=== PATIENT | male | born 1940 | race Caucasian/White ===

== ENCOUNTER 2016-08-16 21:00 | Emergency (ER) | payer MEDICARE, OTHER ==
[2016-08-16] MEDS ORDERED: IPRATROPIUM/ALBUTEROL SULFATE 3 ML AMPUL.NEB NEB ONE (21:27)
[2016-08-16] MEDS: NITROGLYCERIN 0.4 MG TAB.SUBL SL ONE (21:30)
[2016-08-16] MEDS ORDERED: NITROGLYCERIN 0.4 MG TAB.SUBL SL ONE (21:38)
[2016-08-16] MEDS: IPRATROPIUM/ALBUTEROL SULFATE 3 ML AMPUL.NEB NEB ONE (21:39)
--- NOTE | 2016-08-16 21:44 | ED Physician Documentation ---
Dyspnea - HISTORIAN Historian: patient - HPI Chief Complaint: Dyspnea Onset: days ago (yesterday) Duration: continues in ED, worse Severity: moderate Exacerbated By: exertion, laying flat Associated Symptoms: chest pain, chest discomfort, productive cough (brown, yellow). denies: chills, fever, sweating, bloody cough, heart racing, leg pain , calf pain Further Comments: yes (76 year old male patient brought in by with complaints of dyspnea. states dyspnea started yesterday and has become progressively worse. 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 Risk Factors: hypertension Surgeries/Procedures: cardiac bypass (10 years ago), other (stents bilateral groin) Other History: diabetes Type 2, other (hypothyroidism, constipation) Allergies/Adverse Reactions: Allergies Allergy/AdvReac Type Severity Reaction Status Date / Time No Known Allergies Allergy Verified 08/16/16 21:45 Home Medications: Ambulatory Orders Medication Instructions Recorded Levothyroxine Sodium [Synthroid] 100 mcg PO 0700 07/05/12 Zolpidem Tartrate [Ambien] 5 mg PO HS PRN tablet 07/08/12 Atorvastatin Calcium [Atorvastatin 8 mg PO HS 08/16/16 Calcium] Calcium Carbonate [Calcium] 600 mg PO D 08/16/16 Cholecalciferol [Vitamin D-3] 5,000 units PO D 08/16/16 Ferrous Sulfate [Iron] 65 mg PO D 08/16/16 Magnesium Oxide [Magnesium] 400 mg PO BID 08/16/16 Metoprolol Tartrate [Lopressor] 25 mg PO HS 08/16/16 Metoprolol Tartrate [Lopressor] 50 mg PO AM 08/16/16 Comb No.42/Folic Acid 1 tab PO D 08/16/16 [Vitamedmd Redichew Rx Tab Chew] Warfarin Sodium [Coumadin] 2.5 mg PO [id number] 08/16/16 Warfarin Sodium [Coumadin] 5 mg PO [id number] 08/16/16 - SOCIAL HX Smoking History: non-smoker - FAMILY HX Family History: denies: none - VITAL SIGNS Vital Signs: Vital Signs Temp Pulse Resp BP Pulse Ox 97.9 F 92 H 30 H 149/95 88 L 08/16/16 21:01 08/16/16 21:01 08/16/16 21:01 08/16/16 21:01 08/16/16 21:01 - REVIEWED ASSESSMENTS Nursing Assessment Reviewed: Yes Vitals Reviewed: Yes Progress - Progress Progress: Patient c/o chest pressure, rates 2/10 - nitro SL given. 2244 Reviewed lab and xray results with patient and . Recommended transfer for cardiology consult. reports not previous history of CHF. Patient prefers [facility]. Patient denies any pain at present. 225 Call to [facility], spoke with Watson GALLAGHER, case discussed - awaiting acceptance. 2320 Technical difficulty in radiology, only able to see film in radiology department, no radiologist over read available. [address] Patel at [facility]. Family updated. Patient with 850cc urine output after lasix 40mg IV. - EKG/XRAY/CT EKG: rhythm (Afib, rate 84) XRAY: chest (CHF, pulmonary edema, cardiomegaly) ED Results Lab/Radiology - Orders Orders: ED Orders Category Date Time Status Continuous EKG monitoring Q30M Care 08/16/16 21:07 Ordered Continuous Pulse Oximetry Q30M Care 08/16/16 21:[address] IV Lock 1T Care 08/16/16 21:08 Ordered CHEST 1 VIEW [RAD] Stat Exams 08/16/16 21:07 Ordered BNP [NT-proBNP] Stat Lab 08/16/16 Ordered CBC/PLATELET/DIFF Stat Lab 08/16/16 21:07 Ordered CMP Stat Lab 08/16/16 21:07 Ordered CREATINE KINASE Stat Lab 08/16/16 21:07 Ordered PT [PT-INR] Stat Lab 08/16/16 Ordered TROPONIN I (cTnI) Stat Lab 08/16/16 21:08 Ordered UA W/MICRO IF INDICATED Stat Lab 08/16/16 21:08 Ordered Ipratropium/Albuterol Sulfate [Duoneb] Med 08/16/16 21:27 Discontinued 3 ml NEB .STK-MED ONE Ipratropium/Albuterol Sulfate [Duoneb] Med 08/16/16 21:27 Once 3 ml NEB NOW ONE Oxygen Daily Oxygen 08/16/16 21:15 Ordered EKG WITH COMPARISON Stat Ther 08/16/16 21:07 Ordered Dyspnea Physical Exam - EXAM General Appearance: moderate distress EENT: eye inspection normal, CAMILA Respiratory: no pain on inspiration, speaks full sentences, respiratory distress (mild RR 28-32), accessory muscle use, decreased air movement, wheezes (2143 after duoneb), rales (bilateral bases) CVS: no murmur, no gallop, pulses full, pulses equal, irregularly irreg. rhythm (chronic AFib) Abdomen: non-tender, no organomegaly, no distention, no ascites, other ( protuberant abd) Skin: no rash, pallor, warm, nml palp., dry Extremities: non-tender, normal range of motion, no evidence of injury, edema (1 + edema to ankles and feet) Neuro/Psych: oriented x3, CN's nml as tested, motor nml, sensation nml, mood/ affect nml Discharge Clincal Impression: CHF (congestive heart failure), NYHA class III Qualifiers: Congestive heart failure type: combined Congestive heart failure chronicity: acute Qualified Code(s): I50.41 - Acute combined systolic (congestive) and diastolic (congestive) heart failure Home Medications: Ambulatory Orders Levothyroxine Sodium [Synthroid] 100 mcg PO 0700 07/05/12 Zolpidem Tartrate [Ambien] 5 mg PO HS PRN tablet 07/08/12 Atorvastatin Calcium [Atorvastatin Calcium] 8 mg PO HS 08/16/16 Calcium Carbonate [Calcium] 600 mg PO D 08/16/16 Cholecalciferol [Vitamin D-3] 5,000 units PO D 08/16/16 Ferrous Sulfate [Iron] 65 mg PO D 08/16/16 Magnesium Oxide [Magnesium] 400 mg PO BID 08/16/16 Metoprolol Tartrate [Lopressor] 25 mg PO HS 08/16/16 Metoprolol Tartrate [Lopressor] 50 mg PO AM 08/16/16 Comb No.42/Folic Acid [Vitamedmd Redichew Rx Tab Chew] 1 tab PO D 08/16 Warfarin Sodium [Coumadin] 2.5 mg PO [id number] 08/16/16 Warfarin Sodium [Coumadin] 5 mg PO [id number] 08/16/16 Condition: Fair Disposition: 02 XFER [facility] HOSP Decision to Admit: NO Decision Time: 23:31
[2016-08-16 21:58] LABS: BASOPHILS % 0.8 (0.0-1.5); MEAN CORPUSCULAR HEMOGLOBIN 31.6 pg (28.0-34.0); MEAN CORPUSCULAR VOLUME 91.8 fl (80.0-100.0); MONOCYTES % 6.7 % (0.0-11.0)
[2016-08-16 22:12] LABS: eGFR (African) > 60; eGFR (Non-African) > 60
[2016-08-16] MEDS: FUROSEMIDE 40 MG/4 ML VIAL IVP ONE (22:20)
[2016-08-16] MEDS: POTASSIUM CHLORIDE 20 MEQ TABLET.ER PO ONE (23:15)
--- NOTE | 2016-08-17 01:34 | Diagnostic Imaging Report ---
SHAMEKA GONZALEZ (BUSINESS INFORMATION CONSULTANT) - ER [facility] [address] [facility].[address] [address] Report Submission Date: Aug 17, 2016 12:12:51 AM CDT Patient Study Name: SHANNAN BRYANT Date: Aug 16, 2016 10:28:24 PM CDT Modality Type: CR Gender: M Description: CHEST : 40 Institution: [facility] Physician: SHAMEKA GONZALEZ (BUSINESS INFORMATION CONSULTANT) - ER Portable chest History: Dyspnea Findings: Moderate bilateral mid to lower lung infiltrate or edema are observed. Pulmonary vascular congestion and cardiomegaly are present. Low lung volumes are noted. Small pleural effusions cannot be excluded. Impression: Probable congestive heart failure. Electronically signed on Aug 17, 2016 12:12:51 AM CDT by: Mike STRANGE
[2016-08-17 01:43] VITALS: BP 152/90
[2016-08-17 05:38] LABS: APPEARANCE,URINE CLEAR (CLEAR); COLOR,URINE YELLOW (YELLOW); OCCULT BLOOD,URINE TRACE-LYSED (NEGATIVE); PH URINE 5.5 (5.0 - 8.0); UROBILINOGEN URINE 0.2 Eu (0.2-1.0)
== END 2016-08-16 23:24 | disposition short-term general hospital (02) ==
LOC: ED 21:00
DX: I50.41 Acute combined systolic (congestive) and diastolic (congestive) heart failure (principal)
CPT/HCPCS: 71010; 80053; 81002; 82550; 83880; 84484; 85025; 85610; A9270; J1940; 99284; S1016

== ENCOUNTER 2016-09-06 18:47 | Emergency (ER) | payer MEDICARE, OTHER ==
--- NOTE | 2016-09-06 19:31 | ED Physician Documentation ---
General Adult - HISTORIAN Historian: patient - HPI Chief Complaint: Dyspnea Onset: days ago (CHF for about 3 weeks) Timing: still present Further Comments: yes (Patient was diagnoses with CHF about 3 weeks ago. Post exerction SA)2 dropped to 83%. Is currently having some increase problems with SHULTZ. Does good with resting. Is having some sleep apnea issues also. No cough chest pain or pressure noted.) - ROS CONST: no problems. denies: fever, chills - PAST HX Past History: A-Fib, CHF Surgeries/Procedures: cholecystectomy, other (, stinting of the femoral arterties, bilateral hernia, .) Allergies/Adverse Reactions: Allergies Allergy/AdvReac Type Severity Reaction Status Date / Time No Known Allergies Allergy Verified 09/06/16 19:16 Home Medications: Ambulatory Orders Medication Instructions Recorded Levothyroxine Sodium [Synthroid] 100 mcg PO 0700 07/05/12 Atorvastatin Calcium [Atorvastatin 8 mg PO HS 08/16/16 Calcium] Calcium Carbonate [Calcium] 600 mg PO D 08/16/16 Magnesium Oxide [Magnesium] 400 mg PO BID 08/16/16 Metoprolol Tartrate [Lopressor] 25 mg PO HS 08/16/16 Metoprolol Tartrate [Lopressor] 50 mg PO AM 08/16/16 Comb No.42/Folic Acid 1 tab PO D 08/16/16 [Vitamedmd Redichew Rx Tab Chew] - SOCIAL HX Smoking History: quit greater than 1 year (quit 24 years ago, > 2ppd) Alcohol Use: none Drug Use: none - FAMILY HX Family History: No - VITAL SIGNS Vital Signs: Vital Signs Temp Pulse Resp BP Pulse Ox 152/90 08/16/16 23:55 - REVIEWED ASSESSMENTS Nursing Assessment Reviewed: Yes Vitals Reviewed: Yes Progress - Progress Progress: SAO2 at resting on RA 94% SAO2 walking on RA 87% SAo2 walking with oxygen at 2 liters 96% General Adult Physical Exam - PHYSICAL EXAM GENERAL APPEARANCE: mild distress EENT: eye inspection normal NECK: normal inspection, thyroid normal, supple RESPIRATORY: no resp distress, chest non-tender, breath sounds normal. No: wheezes, rales, rhonchi CVS: reg rate & rhythm, heart sounds normal, equal pulses, no murmur ABDOMEN: soft, no organomegaly, normal bowel sounds SKIN: warm/dry, normal color EXTREMITIES: non-tender, edema (trace) NEURO: oriented X3, mood/affect nml Discharge Clincal Impression: Dyspnea Qualifiers: Dyspnea type: dyspnea on exertion Qualified Code(s): R06.09 - Other forms of dyspnea Referrals: Kelsie Dubose FNP [Primary Care Provider] - 2 Days Additional Instructions: Stay on present medication and treatment. I will contact Kelsie Dubose about getting oxygen therapy. Home Medications: Ambulatory Orders Levothyroxine Sodium [Synthroid] 100 mcg PO 0700 07/05/12 Atorvastatin Calcium [Atorvastatin Calcium] 8 mg PO HS 08/16/16 Calcium Carbonate [Calcium] 600 mg PO D 08/16/16 Magnesium Oxide [Magnesium] 400 mg PO BID 08/16/16 Metoprolol Tartrate [Lopressor] 25 mg PO HS 08/16/16 Metoprolol Tartrate [Lopressor] 50 mg PO AM 08/16/16 Comb No.42/Folic Acid [Vitamedmd Redichew Rx Tab Chew] 1 tab PO D 08/16 Condition: Stable Decision to Admit: NO Date of Decison to Admit: 09/06/16 Decision Time: 21:11
[2016-09-06 19:46] LABS: BASOPHILS % 1.2 (0.0-1.5); EOSINOPHILS % 3.6 % (0.0-6.8); MEAN CORPUSCULAR HEMOGLOBIN 33.9 pg (28.0-34.0); MEAN CORPUSCULAR VOLUME 88.9 fl (80.0-100.0); MONOCYTES % 7.6 % (0.0-11.0); NEUTROPHILS # 5.1 # k/uL (1.4-7.7)
[2016-09-06] MEDS ORDERED: 0.9 % SODIUM CHLORIDE 1,000 ML IV ONE (20:14)
--- NOTE | 2016-09-06 20:54 | Diagnostic Imaging Report ---
HOMER JO [facility] [id number] [facility] [address] [address] Report Submission Date: Sep 06, 2016 8:14:08 PM CDT Patient Study Name: SHANNAN BRYANT Date: Sep 06, 2016 7:54:06 PM CDT Modality Type: CR Gender: M Description: CHEST : 40 Institution: [facility] Physician: HOMER JO Chest, PA and lateral History: Shortness of breath Findings: No infiltrate, effusion or pneumothorax is present. The heart is enlarged. Pulmonary vascularity is normal. There is calcification in the thoracic aorta. T12 vertebral body compression fracture is present. Approximately 25% loss of vertebral body height is noted at this level. Vertebroplasty or kyphoplasty changes may be present. Impression: Cardiomegaly and aortic atherosclerosis. Electronically signed on Sep 06, 2016 8:14:08 PM CDT by: Raúl STRANGE
[2016-09-06 21:42] VITALS: BP 140/74
== END 2016-09-06 21:15 ==
LOC: ED 18:47
DX: R06.09 Other forms of dyspnea (principal)
CPT/HCPCS: 71020; 80053; 83880; 85025; 93005; J7030; 96360; 99283; S1016

== ENCOUNTER 2016-09-08 07:57 | Outpatient (CLI) | payer MEDICARE, OTHER | END 2016-09-08 08:00 | LOC: LAB 07:57 | PROVIDERS: ATTEND Pain Medicine Interventional Pain Medicine | DX: M54.5 Low back pain (principal); Z79.01 Long term (current) use of anticoagulants | CPT/HCPCS: 36415; 85610; 85730 ==

== ENCOUNTER 2016-10-16 07:47 | Outpatient (CLI) | payer MEDICARE, OTHER ==
[2016-10-16 08:20] LABS: BASOPHILS % 0.8 (0.0-1.5); EOSINOPHILS % 4.6 % (0.0-6.8); MEAN CORPUSCULAR HEMOGLOBIN 31.1 pg (28.0-34.0); MEAN CORPUSCULAR VOLUME 86.6 fl (80.0-100.0); NEUTROPHILS # 4.6 # k/uL (1.4-7.7)
== END 2016-10-16 07:50 ==
LOC: LAB 07:47
PROVIDERS: ATTEND Orthopaedic Surgery
DX: M25.552 Pain in left hip (principal); Z96.642 Presence of left artificial hip joint
CPT/HCPCS: 36415; 85025; 85651; 86140

== ENCOUNTER 2016-11-05 09:16 | Outpatient (CLI) | payer MEDICARE, OTHER | END 2016-11-05 09:17 | LOC: LAB 09:16 | PROVIDERS: ATTEND Orthopaedic Surgery Adult Reconstructive Orthopaedic Surgery | DX: M16.12 Unilateral primary osteoarthritis, left hip (principal) | CPT/HCPCS: 36415; 85610; 85730 ==

== ENCOUNTER 2017-02-10 16:10 | Inpatient (IN) | payer MEDICARE, OTHER ==
[2017-02-10] MEDS ORDERED: ENOXAPARIN SODIUM 30 MG/0.3 ML DISP.SYRIN SQ SCH (18:00)
[2017-02-10 18:08] VITALS: BMI 80.6
[2017-02-10] MEDS ORDERED: ENOXAPARIN SODIUM 30 MG/0.3 ML DISP.SYRIN SQ ONE (18:11)
[2017-02-10] MEDS: ATORVASTATIN CALCIUM 80 MG TABLET PO SCH ×2 (18:15→18:19)
[2017-02-10] MEDS: PREGABALIN 50 MG CAPSULE PO SCH ×2 (18:47→20:06)
[2017-02-10] MEDS: WARFARIN SODIUM 2.5 MG TABLET PO SCH (18:59)
[2017-02-10] MEDS: WARFARIN SODIUM 5 MG TABLET PO SCH (19:00)
--- NOTE | 2017-02-10 19:07 | History and Physical Report ---
History of Present Illnes - History of Present Illness Reason for Visit: rehab therapy post total left hip revision History of Present Illness: Patient is a 76-year-old white male who several years ago have a total hip replacement done on the left side. Patient stated he is had problems with it ever since it with done. Patient recently was admitted to [facility] where he had a revision of the hip. Patient stated he has been doing well. Pain has been managed with tramadol. Patient has been having bowel movements. Patient has been ambulating with some difficulties. Patient did not have any intraoperative or postoperative complications that he is aware. Patient was subsequently transferred to this institution for further rehab services. 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 negative: Ear Pain, Ear Discharge, Nose Pain, Nose Discharge, Nose Congestion, Mouth Pain, Mouth Swelling, Throat Pain, Throat Swelling Respiratory: negative: Cough, Shortness of Breath, Hemoptysis, SOB with Excertion, Pleuritic Pain, Sputum, Wheezing Cardiovascular: Other (A fib). negative: Chest Pain, Palpitations, Orthopnea, Paroxysmal Noc. Dyspnea, Light Headedness Gastrointestinal: negative: Nausea, Vomiting, Abdominal Pain, Diarrhea, Constipation (BM every day the last 3 days) Genitourinary: Incontinence. negative: Dysuria, Frequency, Hematuria, Retention Musculoskeletal: Leg Pain (left). negative: Neck Pain, Shoulder Pain, Arm Pain , Back Pain Skin: negative: Rash, Lesions Neurological: negative: Weakness, Numbness, Incoordination, Change in Speech, Confusion, Seizures - Medications/Allergies Allergies/Adverse Reactions: Allergies Allergy/AdvReac Type Severity Reaction Status Date / Time No Known Allergies Allergy Verified 09/06/16 19:16 Current Inpatient Medications: Current Inpatient Medications Atorvastatin Calcium (Lipitor) 40 mg PO HS [facility] Last Admin: 02/10/17 18:19 Dose: Not Given Calcium/Vitamin D (Caltrate With Vit D-3) 1 each PO DAILY [facility] Diltiazem HCl (Cardizem Cd) 180 mg PO DAILY [facility] Levothyroxine Sodium (Synthroid) 100 mcg PO 0700 [facility] Magnesium Oxide (Mag-Oxide) 400 mg PO BID [facility] Metoprolol Tartrate (Lopressor) 25 mg PO HS [facility] Metoprolol Tartrate (Lopressor) 50 mg PO AM [facility] Miscellaneous (Chem Sticks) 1 each MC CHEMQ [facility] Multivitamins (Tab-A-Aswyer) 1 each PO DAILY [facility] Pregabalin (Lyrica) 50 mg PO BID [facility] Last Admin: 02/10/17 18:47 Dose: Not Given Tramadol HCl (Ultram) 50 mg PO Q6H PRN PRN Reason: PAIN Warfarin Sodium (Coumadin) 2.5 mg PO [id number] [facility] Last Admin: 02/10/17 18:59 Dose: Not Given Warfarin Sodium (Coumadin) 5 mg PO [id number] [facility] Last Admin: 02/10/17 19:00 Dose: 5 mg Exam - Exam Vital Signs: Vital Signs (72 hours) 02/10/17 02/10/17 16:58 18:00 Temperature 98.1 F 97.4 F L Pulse Rate [ 102 H Left] Respiratory 22 20 Rate Blood Pressure 131/71 [Left Arm] Blood Pressure 136/70 [Right Arm] O2 Sat by Pulse 95 96 Oximetry General: Alert, Oriented to Person, Oriented to Place, Oriented to Time, Cooperative HEENT: Atraumatic, PERRLA, Mouth Mucous membr. moist/Ronda, Nose Mucous membr. moist/Ronda, Decreased Hearing Acuity Neck: Normal Range of Motion. No: Stridor, Rigidity, Lymphadenopathy Carotids: WNL Thyroid: WNL Lungs: Clear to auscultation, Normal air movement, Speaks full Sentences. No: Respiratory Distress, Wheezes, Rales, Rhonchi Cardiovascular: Normal S1, Normal S2, No murmurs, Irregularly Irregular, Atrial Fib Abdomen: Normal bowel sounds (obese), Soft, No tenderness, No hepatospenomegaly , No masses Integumentary: Normal, Ronda, Warm, Dry, Other (well healing surgical scar tot he left lateral hip) Extremities: No clubbing, No cyanosis, Normal pulses, Other (Mild LLE edema). No: No edema Neurological: Normal speech, Strength Equal Bilat, Normal tone, Sensation intact , Cranial nerves 3-12 NL, Reflexes 2+. No: Normal gait Psych/Mental Status: Mental status NL, Mood NL, Appropriate Affect, Intact Judgment Assessment/Plan - Assessment/Plan (1) Gait disturbance Status: Acute Current Visit: Yes Assessment: Will start PT and OT therapy, goal is for patient to return to home. No steps in the home. (2) Atrial fibrillation Status: Chronic Current Visit: Yes Qualifiers: Atrial fibrillation type: chronic Qualified Code(s): I48.2 - Chronic atrial fibrillation Assessment: continue with rate control meds and anticoagulation therapy (3) CAD (coronary artery disease) Status: Chronic Current Visit: Yes Qualifiers: Coronary Disease-Associated Artery/Lesion type: hoh artery [place] vs. transplanted heart: hoh heart Associated angina: without angina Qualified Code(s): I25.10 - Atherosclerotic heart disease of hoh coronary artery without angina pectoris Comment: stable, will continuw with home meds (4) PVD (peripheral vascular disease) Status: Chronic Current Visit: Yes Assessment: stable, on anticoagulation therapy (5) Hypothyroidism Status: Chronic Current Visit: Yes Qualifiers: Hypothyroidism type: unspecified Qualified Code(s): E03.9 - Hypothyroidism , unspecified Assessment: continue with levothyroxine (6) Osteoarthritis of hip Status: Acute Current Visit: Yes Qualifiers: Osteoarthritis type: primary Assessment: s/p revision, monitor wound (7) Diabetes type 2, controlled Status: Chronic Current Visit: Yes Qualifiers: Diabetes mellitus complication status: without complication Diabetes mellitus jail insulin use: without jail use Qualified Code(s): E11.9 - Type 2 diabetes mellitus without complications Assessment: does not appear to be on any medication at this time, will continue with diet control, Last A1c 5.7 (8) Essential hypertension Status: Chronic Current Visit: Yes Assessment: stable on home medications (9) History of prostate cancer Status: Chronic Current Visit: No (10) Adequate anticoagulation on anticoagulant therapy Status: Chronic Current Visit: Yes Assessment: continue with coumadin, will recheck INR (11) CHF (congestive heart failure), NYHA class III Status: Chronic Current Visit: No Qualifiers: Congestive heart failure type: diastolic Congestive heart failure chronicity: chronic Qualified Code(s): I50.32 - Chronic diastolic (congestive ) heart failure Assessment: stable continue with home medications VTE Assessment - RISK FACTOR SCORE VTE RISK FACTOR SCORES: AGE OVER 60 YEARS, ANTICIPATED BED CONFINEMENT OR IMMOBILIZATION > 24 HOURS, ELECTIVE KNEE OR HIP ARTHROPLASTY - RISK VTE HIGH RISK: SCORE OF 3-4 (RISK PROXIMAL DVT 4-8%) PROPHYLAXIS NEEDED (on coumadin therapy)
[2017-02-10] MEDS: METOPROLOL TARTRATE 25 MG TABLET PO SCH (20:06)
[2017-02-10] MEDS: MAGNESIUM OXIDE 400 MG TABLET PO SCH (22:03)
[2017-02-11] MEDS: traMADol HCL 50 MG TABLET PO PRN ×2 (02:44→08:48)
[2017-02-11] MEDS: LEVOTHYROXINE SODIUM 100 MCG TABLET PO SCH (05:58)
[2017-02-11] MEDS ORDERED: CALCIUM CARB 500/VIT D 200 1 EACH TABLET ONE (08:41)
[2017-02-11] MEDS: DILTIAZEM HCL 180 MG CAP.ER.24H PO SCH (08:47)
[2017-02-11] MEDS: PREGABALIN 50 MG CAPSULE PO SCH ×2 (08:47→19:32)
[2017-02-11] MEDS: METOPROLOL TARTRATE 50 MG TABLET PO SCH (08:47)
[2017-02-11] MEDS: MAGNESIUM OXIDE 400 MG TABLET PO SCH ×2 (08:48→19:32)
[2017-02-11] MEDS: MULTIVITAMIN 1 EACH TABLET PO SCH (08:48)
[2017-02-11] MEDS: CALCIUM CARB 600MG/VIT D-3 400 1 EACH TABLET PO SCH (08:49)
[2017-02-11] MEDS ORDERED: HYDROcodone /APAP 5/325 1 EACH TABLET ONE (14:14)
[2017-02-11] MEDS: HYDROcodone /APAP 5/325 1 EACH TABLET PO PRN ×2 (14:15→20:56)
[2017-02-11] MEDS ORDERED: HYDROcodone /APAP 5/325 1 EACH TABLET PO PRN (15:13)
[2017-02-11] MEDS: WARFARIN SODIUM 2.5 MG TABLET PO SCH (17:39)
[2017-02-11] MEDS: METOPROLOL TARTRATE 25 MG TABLET PO SCH (19:32)
[2017-02-11] MEDS: ATORVASTATIN CALCIUM 80 MG TABLET PO SCH (19:32)
[2017-02-12] MEDS ORDERED: CALCIUM CARB 500/VIT D 200 1 EACH TABLET ONE (05:19)
[2017-02-12] MEDS: LEVOTHYROXINE SODIUM 100 MCG TABLET PO SCH (05:56)
[2017-02-12] MEDS: CALCIUM CARB 600MG/VIT D-3 400 1 EACH TABLET PO SCH (08:53)
[2017-02-12] MEDS: DILTIAZEM HCL 180 MG CAP.ER.24H PO SCH (08:53)
[2017-02-12] MEDS: DOCUSATE SODIUM 100 MG CAPSULE PO SCH (08:54)
[2017-02-12] MEDS: MAGNESIUM OXIDE 400 MG TABLET PO SCH ×2 (08:54→20:55)
[2017-02-12] MEDS: METOPROLOL TARTRATE 50 MG TABLET PO SCH (08:54)
[2017-02-12] MEDS: MULTIVITAMIN 1 EACH TABLET PO SCH (08:54)
[2017-02-12] MEDS: PREGABALIN 50 MG CAPSULE PO SCH ×2 (08:59→20:53)
[2017-02-12] MEDS: HYDROcodone /APAP 5/325 1 EACH TABLET PO PRN ×4 (08:59→23:33)
[2017-02-12] MEDS: POLYETHYLENE GLYCOL 3350 17 GM POWD.PACK PO SCH ×2 (09:30→11:39)
[2017-02-12] MEDS: WARFARIN SODIUM 5 MG TABLET PO SCH (18:02)
[2017-02-12] MEDS: ATORVASTATIN CALCIUM 80 MG TABLET PO SCH (20:50)
[2017-02-12] MEDS: METOPROLOL TARTRATE 25 MG TABLET PO SCH (20:53)
[2017-02-13] MEDS: LEVOTHYROXINE SODIUM 100 MCG TABLET PO SCH (06:14)
[2017-02-13] MEDS: DILTIAZEM HCL 180 MG CAP.ER.24H PO SCH (08:54)
[2017-02-13] MEDS: HYDROcodone /APAP 5/325 1 EACH TABLET PO PRN ×3 (08:54→22:32)
[2017-02-13] MEDS: MULTIVITAMIN 1 EACH TABLET PO SCH (08:55)
[2017-02-13] MEDS: METOPROLOL TARTRATE 50 MG TABLET PO SCH (08:55)
[2017-02-13] MEDS: DOCUSATE SODIUM 100 MG CAPSULE PO SCH (08:55)
[2017-02-13] MEDS: CALCIUM CARB 600MG/VIT D-3 400 1 EACH TABLET PO SCH (09:04)
[2017-02-13] MEDS: MAGNESIUM OXIDE 400 MG TABLET PO SCH ×2 (09:04→21:37)
[2017-02-13] MEDS: PREGABALIN 50 MG CAPSULE PO SCH ×2 (09:04→21:37)
[2017-02-13] MEDS: FUROSEMIDE 40 MG TABLET PO SCH ×2 (12:22→16:34)
[2017-02-13] MEDS: POLYETHYLENE GLYCOL 3350 17 GM POWD.PACK PO SCH (12:22)
[2017-02-13] MEDS: WARFARIN SODIUM 2.5 MG TABLET PO SCH (18:33)
[2017-02-13] MEDS: traMADol HCL 50 MG TABLET PO PRN (18:33)
[2017-02-13] MEDS: METOPROLOL TARTRATE 25 MG TABLET PO SCH (21:37)
[2017-02-13] MEDS: ATORVASTATIN CALCIUM 80 MG TABLET PO SCH (21:37)
[2017-02-14] MEDS: LEVOTHYROXINE SODIUM 100 MCG TABLET PO SCH (06:08)
[2017-02-14] MEDS: FUROSEMIDE 40 MG TABLET PO SCH ×2 (06:09→14:15)
[2017-02-14] MEDS: HYDROcodone /APAP 5/325 1 EACH TABLET PO PRN ×4 (08:10→23:44)
[2017-02-14] MEDS: MAGNESIUM OXIDE 400 MG TABLET PO SCH ×2 (08:11→20:49)
[2017-02-14] MEDS: MULTIVITAMIN 1 EACH TABLET PO SCH (08:12)
[2017-02-14] MEDS: DOCUSATE SODIUM 100 MG CAPSULE PO SCH (08:12)
[2017-02-14] MEDS: METOPROLOL TARTRATE 50 MG TABLET PO SCH (08:12)
[2017-02-14] MEDS: DILTIAZEM HCL 180 MG CAP.ER.24H PO SCH (08:12)
[2017-02-14] MEDS: POLYETHYLENE GLYCOL 3350 17 GM POWD.PACK PO SCH (08:13)
[2017-02-14] MEDS: PREGABALIN 50 MG CAPSULE PO SCH ×2 (08:16→20:51)
[2017-02-14] MEDS: CALCIUM CARB 500/VIT D 200 1 EACH TABLET PO SCH (08:16)
--- NOTE | 2017-02-14 15:30 | Inpatient Progress Note ---
Subjective - Required Recertification Statement I anticipate X number of days because-include discharge plan: 2 weeks - Review of Systems Events since last encounter: Patient states he seemed to be doing better at this time. Patient states that her pain is well-controlled with her current pain regimen. Patient has been using the hydrocodone sparingly. Patient does feel like he is gaining straight for his ambulation. Patient has been having some constipation problems. Patient denies any nausea vomiting. Objective - Exam Vitals and I&O: Vital Signs Temp 98 F 02/14/17 09:00 Pulse 88 02/14/17 09:00 Resp 20 02/14/17 09:00 BP 130/85 02/14/17 09:00 Pulse Ox 98 02/14/17 09:00 Intake & Output 02/13/17 02/14/17 02/14/17 23:59 11:59 23:59 Intake Total 600 240 Balance 600 240 Weight 96.615 kg Intake: Oral 600 240 Other: Voiding Method Urinal Urinal # Voids 2 General: Alert, Oriented to Person, Oriented to Place, Oriented to Time, Cooperative, No acute distress Lungs: Clear to auscultation, Normal air movement, Speaks full Sentences. No: Wheezes, Rales, Rhonchi Cardiovascular: Normal S1, Normal S2, Irregularly Irregular Abdomen: Normal bowel sounds, Soft, No tenderness, No masses. No: Distended Skin: Normal, [place], Warm, Dry, Other (incision site stable) Psych/Mental Status: Mental status NL, Mood NL, Appropriate Affect - Results Results: Laboratory Results PT 21.7 Seconds (9.4-11.6) H 02/11/17 06:30 INR 2.05 (0.9-1.2) H 02/11/17 06:30 Assessment/Plan - Assessment/Plan (1) Gait disturbance Status: Acute Current Visit: Yes Assessment: improved (2) Atrial fibrillation Status: Chronic Current Visit: Yes Qualifiers: Atrial fibrillation type: chronic Qualified Code(s): I48.2 - Chronic atrial fibrillation Assessment: stable (3) CAD (coronary artery disease) Status: Chronic Current Visit: Yes Qualifiers: Coronary Disease-Associated Artery/Lesion type: wiyot artery [place] vs. 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: without embedded software engineer use Qualified Code(s): E11.9 - Type 2 diabetes mellitus without complications Assessment: blood sugars n the mid 100 range (7) Essential hypertension Status: Chronic Current Visit: Yes Assessment: stable (8) Adequate anticoagulation on anticoagulant therapy Status: Chronic Current Visit: Yes (9) CHF (congestive heart failure), NYHA class III Status: Chronic Current Visit: No Qualifiers: Congestive heart failure type: diastolic Congestive heart failure chronicity: chronic Qualified Code(s): I50.32 - Chronic diastolic (congestive ) heart failure Assessment: stable
[2017-02-14] MEDS: WARFARIN SODIUM 5 MG TABLET PO SCH (18:28)
[2017-02-14] MEDS: METOPROLOL TARTRATE 25 MG TABLET PO SCH (20:49)
[2017-02-14] MEDS: ATORVASTATIN CALCIUM 80 MG TABLET PO SCH (20:49)
[2017-02-15] MEDS: FUROSEMIDE 40 MG TABLET PO SCH ×2 (06:42→13:39)
[2017-02-15] MEDS: LEVOTHYROXINE SODIUM 100 MCG TABLET PO SCH (06:42)
[2017-02-15] MEDS: PREGABALIN 50 MG CAPSULE PO SCH ×2 (08:20→22:16)
[2017-02-15] MEDS: traMADol HCL 50 MG TABLET PO PRN ×2 (08:20→16:39)
[2017-02-15] MEDS: MAGNESIUM OXIDE 400 MG TABLET PO SCH ×2 (08:21→22:07)
[2017-02-15] MEDS: METOPROLOL TARTRATE 50 MG TABLET PO SCH (08:22)
[2017-02-15] MEDS: DILTIAZEM HCL 180 MG CAP.ER.24H PO SCH (08:22)
[2017-02-15] MEDS: MULTIVITAMIN 1 EACH TABLET PO SCH (08:22)
[2017-02-15] MEDS: POLYETHYLENE GLYCOL 3350 17 GM POWD.PACK PO SCH (16:41)
[2017-02-15] MEDS: CALCIUM CARB 500/VIT D 200 1 EACH TABLET PO SCH ×2 (16:41→22:04)
[2017-02-15] MEDS: WARFARIN SODIUM 5 MG TABLET PO SCH (18:09)
[2017-02-15] MEDS ORDERED: LOPERAMIDE HCL 2 MG CAPSULE PO PRN (19:41)
[2017-02-15] MEDS: DOCUSATE SODIUM 100 MG CAPSULE PO SCH (22:05)
[2017-02-15] MEDS: ATORVASTATIN CALCIUM 80 MG TABLET PO SCH (22:06)
[2017-02-15] MEDS: HYDROcodone /APAP 5/325 1 EACH TABLET PO PRN (22:15)
[2017-02-15] MEDS: METOPROLOL TARTRATE 25 MG TABLET PO SCH (22:15)
[2017-02-16] MEDS: traMADol HCL 50 MG TABLET PO PRN ×2 (04:45→12:52)
[2017-02-16] MEDS: FUROSEMIDE 40 MG TABLET PO SCH ×2 (06:39→11:31)
[2017-02-16] MEDS: LEVOTHYROXINE SODIUM 100 MCG TABLET PO SCH (06:39)
[2017-02-16] MEDS: DOCUSATE SODIUM 100 MG CAPSULE PO SCH (08:38)
[2017-02-16] MEDS: PREGABALIN 50 MG CAPSULE PO SCH ×2 (08:38→21:00)
[2017-02-16] MEDS: CALCIUM CARB 500/VIT D 200 1 EACH TABLET PO SCH (08:38)
[2017-02-16] MEDS: DILTIAZEM HCL 180 MG CAP.ER.24H PO SCH (08:38)
[2017-02-16] MEDS: MAGNESIUM OXIDE 400 MG TABLET PO SCH ×2 (08:38→21:00)
[2017-02-16] MEDS: METOPROLOL TARTRATE 50 MG TABLET PO SCH (08:38)
[2017-02-16] MEDS: MULTIVITAMIN 1 EACH TABLET PO SCH (08:38)
[2017-02-16] MEDS: POLYETHYLENE GLYCOL 3350 17 GM POWD.PACK PO SCH (11:20)
[2017-02-16] MEDS: WARFARIN SODIUM 2.5 MG TABLET PO SCH (17:22)
[2017-02-16] MEDS: HYDROcodone /APAP 5/325 1 EACH TABLET PO PRN (21:00)
[2017-02-16] MEDS: ATORVASTATIN CALCIUM 80 MG TABLET PO SCH (21:00)
[2017-02-16] MEDS: METOPROLOL TARTRATE 25 MG TABLET PO SCH (21:04)
[2017-02-17] MEDS: LEVOTHYROXINE SODIUM 100 MCG TABLET PO SCH (06:48)
[2017-02-17] MEDS: FUROSEMIDE 40 MG TABLET PO SCH ×2 (06:48→12:18)
[2017-02-17] MEDS: MULTIVITAMIN 1 EACH TABLET PO SCH (07:33)
[2017-02-17] MEDS: METOPROLOL TARTRATE 50 MG TABLET PO SCH (07:33)
[2017-02-17] MEDS: DOCUSATE SODIUM 100 MG CAPSULE PO SCH (07:33)
[2017-02-17] MEDS: DILTIAZEM HCL 180 MG CAP.ER.24H PO SCH (07:33)
[2017-02-17] MEDS: CALCIUM CARB 500/VIT D 200 1 EACH TABLET PO SCH (07:34)
[2017-02-17] MEDS: MAGNESIUM OXIDE 400 MG TABLET PO SCH ×2 (07:34→21:41)
[2017-02-17] MEDS: PREGABALIN 50 MG CAPSULE PO SCH ×2 (07:38→21:43)
[2017-02-17] MEDS: POLYETHYLENE GLYCOL 3350 17 GM POWD.PACK PO SCH (07:41)
[2017-02-17 07:47] LABS: BASOPHILS % 0.8 (0.0-1.5); EOSINOPHILS % 5.7 % (0.0-6.8); MEAN CORPUSCULAR HEMOGLOBIN 30.8 pg (28.0-34.0); MEAN CORPUSCULAR VOLUME 92.7 fl (80.0-100.0); MONOCYTES % 5.6 % (0.0-11.0); NEUTROPHILS # 5.5 # k/uL (1.4-7.7)
[2017-02-17 07:59] LABS: eGFR (African) > 60; eGFR (Non-African) > 60
[2017-02-17] MEDS: HYDROcodone /APAP 5/325 1 EACH TABLET PO PRN ×3 (09:12→21:40)
[2017-02-17] MEDS: WARFARIN SODIUM 5 MG TABLET PO SCH (17:25)
[2017-02-17] MEDS: METOPROLOL TARTRATE 25 MG TABLET PO SCH (21:40)
[2017-02-17] MEDS: ATORVASTATIN CALCIUM 80 MG TABLET PO SCH (21:41)
[2017-02-18] MEDS: HYDROcodone /APAP 5/325 1 EACH TABLET PO PRN ×3 (03:36→19:54)
[2017-02-18] MEDS: LEVOTHYROXINE SODIUM 100 MCG TABLET PO SCH (06:05)
[2017-02-18] MEDS: FUROSEMIDE 40 MG TABLET PO SCH ×2 (06:05→12:13)
[2017-02-18] MEDS: PREGABALIN 50 MG CAPSULE PO SCH ×2 (09:39→19:52)
[2017-02-18] MEDS: MAGNESIUM OXIDE 400 MG TABLET PO SCH ×2 (09:39→19:53)
[2017-02-18] MEDS: MULTIVITAMIN 1 EACH TABLET PO SCH (09:40)
[2017-02-18] MEDS: METOPROLOL TARTRATE 50 MG TABLET PO SCH (09:40)
[2017-02-18] MEDS: DILTIAZEM HCL 180 MG CAP.ER.24H PO SCH (09:40)
[2017-02-18] MEDS: DOCUSATE SODIUM 100 MG CAPSULE PO SCH ×2 (09:41→19:52)
[2017-02-18] MEDS: CALCIUM CARB 500/VIT D 200 1 EACH TABLET PO SCH (09:42)
[2017-02-18] MEDS: POLYETHYLENE GLYCOL 3350 17 GM POWD.PACK PO SCH (12:14)
[2017-02-18] MEDS: WARFARIN SODIUM 2.5 MG TABLET PO SCH (18:14)
[2017-02-18] MEDS: ATORVASTATIN CALCIUM 80 MG TABLET PO SCH (19:52)
[2017-02-18] MEDS: METOPROLOL TARTRATE 25 MG TABLET PO SCH (19:54)
[2017-02-19] MEDS: HYDROcodone /APAP 5/325 1 EACH TABLET PO PRN ×4 (03:06→23:23)
[2017-02-19] MEDS: FUROSEMIDE 40 MG TABLET PO SCH ×2 (06:19→11:54)
[2017-02-19] MEDS: LEVOTHYROXINE SODIUM 100 MCG TABLET PO SCH (06:19)
[2017-02-19] MEDS: DOCUSATE SODIUM 100 MG CAPSULE PO SCH (08:59)
[2017-02-19] MEDS: MAGNESIUM OXIDE 400 MG TABLET PO SCH ×2 (08:59→19:35)
[2017-02-19] MEDS: DILTIAZEM HCL 180 MG CAP.ER.24H PO SCH (09:19)
[2017-02-19] MEDS: CALCIUM CARB 500/VIT D 200 1 EACH TABLET PO SCH (09:20)
[2017-02-19] MEDS: MULTIVITAMIN 1 EACH TABLET PO SCH (09:20)
[2017-02-19] MEDS: PREGABALIN 50 MG CAPSULE PO SCH ×2 (09:23→19:37)
[2017-02-19] MEDS: METOPROLOL TARTRATE 50 MG TABLET PO SCH ×2 (09:23→19:34)
[2017-02-19] MEDS: POLYETHYLENE GLYCOL 3350 17 GM POWD.PACK PO SCH (11:54)
[2017-02-19] MEDS: WARFARIN SODIUM 5 MG TABLET PO SCH (17:26)
[2017-02-19] MEDS: ATORVASTATIN CALCIUM 80 MG TABLET PO SCH (19:33)
[2017-02-19] MEDS: METOPROLOL TARTRATE 25 MG TABLET PO SCH (19:34)
[2017-02-20] MEDS: LEVOTHYROXINE SODIUM 100 MCG TABLET PO SCH (05:52)
[2017-02-20] MEDS: FUROSEMIDE 40 MG TABLET PO SCH ×2 (05:52→15:09)
[2017-02-20] MEDS: PREGABALIN 50 MG CAPSULE PO SCH ×2 (08:40→20:45)
[2017-02-20] MEDS: CALCIUM CARB 500/VIT D 200 1 EACH TABLET PO SCH (08:40)
[2017-02-20] MEDS: DOCUSATE SODIUM 100 MG CAPSULE PO SCH (08:40)
[2017-02-20] MEDS: MAGNESIUM OXIDE 400 MG TABLET PO SCH ×2 (08:40→20:45)
[2017-02-20] MEDS: MULTIVITAMIN 1 EACH TABLET PO SCH (08:40)
[2017-02-20] MEDS: HYDROcodone /APAP 5/325 1 EACH TABLET PO PRN ×3 (08:40→22:15)
[2017-02-20] MEDS: DILTIAZEM HCL 180 MG CAP.ER.24H PO SCH (08:40)
[2017-02-20] MEDS: POLYETHYLENE GLYCOL 3350 17 GM POWD.PACK PO SCH (11:43)
--- NOTE | 2017-02-20 16:04 | Diagnostic Imaging Report ---
[place]MED SURG [facility] [address] [address] [facility] [address] [address] Report Submission Date: Feb 20, 2017 4:02:20 PM CRYSTAL GRINDER Patient Study Name: SHANNAN BRYANT Date: Feb 20, 2017 3:35:55 PM CRYSTAL GRINDER Modality Type: CR Gender: M Description: CHEST : 40 Institution: [facility] Physician: [place]/MED SURG Examination: PA and lateral chest. History: Evaluate lung joseph. Comparison exam: 06 September 2016 Findings: PA lateral chest demonstrate a normal cardiac and mediastinal silhouette. Vascular calcifications are depressed. Chronic interstitial changes. Right lower lung parenchymal infiltrate. No blunting of the costophrenic margins. Osseous structures are appropriate for age. Impression: Chronic parenchymal changes. Right lower lung pneumonic infiltrate. No effusion. Electronically signed on Feb 20, 2017 4:02:20 PM CRYSTAL GRINDER by: João STRANGE
[2017-02-20] MEDS ORDERED: AZITHROMYCIN 250 MG TABLET PO ONE (16:06)
[2017-02-20] MEDS: CEFDINIR 300 MG CAPSULE PO SCH ×2 (17:19→20:48)
[2017-02-20] MEDS: WARFARIN SODIUM 2.5 MG TABLET PO SCH (17:24)
[2017-02-20 17:50] LABS: BASOPHILS % 0.7 (0.0-1.5); EOSINOPHILS % 4.4 % (0.0-6.8); MEAN CORPUSCULAR HEMOGLOBIN 31.4 pg (28.0-34.0); MEAN CORPUSCULAR VOLUME 93.2 fl (80.0-100.0); MONOCYTES % 6.3 % (0.0-11.0); NEUTROPHILS # 6.3 # k/uL (1.4-7.7)
[2017-02-20] MEDS: IPRATROPIUM/ALBUTEROL SULFATE 3 ML AMPUL.NEB NEB SCH ×2 (18:20→21:15)
[2017-02-20] MEDS: METOPROLOL TARTRATE 25 MG TABLET PO SCH (20:45)
[2017-02-20] MEDS: ATORVASTATIN CALCIUM 80 MG TABLET PO SCH (20:46)
[2017-02-21] MEDS ORDERED: AZITHROMYCIN 250 MG TABLET PO ONE ×2 (05:20→10:22)
[2017-02-21] MEDS: FUROSEMIDE 40 MG TABLET PO SCH (06:19)
[2017-02-21] MEDS: LEVOTHYROXINE SODIUM 100 MCG TABLET PO SCH (06:19)
--- NOTE | 2017-02-21 08:36 | Discharge Summary ---
Discharge Summary - Discharge Sumary History of Present Illness: Patient is a 76-year-old white male who several years ago have a total hip replacement done on the left side. Patient stated he is had problems with it ever since it with done. Patient recently was admitted to [facility] where he had a revision of the hip. Patient stated he has been doing well. Pain has been managed with tramadol. Patient has been having bowel movements. Patient has been ambulating with some difficulties. Patient did not have any intraoperative or postoperative complications that he is aware. Patient was subsequently transferred to this institution for further rehab services. Condition at Discharge: Stable Home Medications: Ambulatory Orders Medication Instructions Recorded Levothyroxine Sodium [Synthroid] 100 mcg PO 0700 07/05/12 Calcium Carbonate [Calcium] 600 mg PO D 08/16/16 Magnesium Oxide [Magnesium] 400 mg PO BID 08/16/16 Comb No.42/Folic Acid 1 tab PO D 08/16/16 [Vitamedmd Redichew Rx Tab Chew] Azithromycin [Zithromax] 250 mg PO DAILY #3 tablet 02/20/17 Cefdinir 300 mg PO BID #20 capsule 02/20/17 Furosemide [Lasix] 40 mg PO 714 #60 tablet 02/20/17 Ipratropium/Albuterol Sulfate 3 ml NEB QID PRN #60 ampul.neb 02/20/17 [Duoneb] Metoprolol Tartrate [Lopressor] 50 mg PO BID #0 02/20/17 Pregabalin [Lyrica] 50 mg PO BID #60 capsule 02/20/17 Warfarin Sodium [Coumadin] 2.5 mg PO [id number] tablet 02/20/17 Warfarin Sodium [Coumadin] 5 mg PO [id number] tablet 02/20/17 traMADol HCL [Ultram] 50 mg PO Q6H PRN #30 tablet 02/20/17 Consultations this Visit: None Procedures this Visit: None Allergies/Adverse Reactions: Allergies Allergy/AdvReac Type Severity Reaction Status Date / Time No Known Allergies Allergy Verified 09/06/16 19:16 Discharge Summary: Patient with admitted to SNF for physical and occupational therapy following a revision of a total hip replacement. Patient did well with physical and occupational therapy. Patient did participate well. At the time of discharge patient was ambulating with the aid of a walker or cane. Patient was ambulating with minimal pain. Red felt that he could be discharged home and follow further home health physical and occupational therapy. 3D hospitalization patient did have some problems with constipation related to his pain medication. Patient was placed on narcotic pain medication for short period of time after his transfer to this institution to help control his pain better. At the time of discharge patient with discharged on tramadol and Tylenol. Patient atrial fibrillation remain stable without a tacky or bradycardia. Patient was on anticoagulation therapy and did have a sub therapeutic INR at the time of discharge. Adjustment were made in the patient commit and dosage. Patient also developed a productive cough up some green to yellow flame approximately two days prior to discharge. A chest x-ray did show a possible developing pneumonia. Patient was started on antibiotic therapy of Cedinir and azithromycin for this.Patient with givenDuoneb for nebulized treatments. Patient was 20 to be discharged so he could attend his brother's . Patient was subsequently discharged in data condition. - Final Diagnosis (1) Gait disturbance Problems: Improved. (2) Atrial fibrillation Problems: Stable. Patient did have a sub therapeutic INR. Coumadin with adjusted. Patient will have INR checked with home health. (3) CAD (coronary artery disease) Problems: Stable without any chest pain or chest pressure. Patient will be continued on home medications. (4) PVD (peripheral vascular disease) Problems: Stable on home medications. (5) Osteoarthritis of hip Problems: stable (6) Diabetes type 2, controlled Problems: stable on home medications (7) Essential hypertension Problems: Stable on home medications. (8) Adequate anticoagulation on anticoagulant therapy Problems: Coumadin was adjusted at the time of discharge. (9) CHF (congestive heart failure), NYHA class III Problems: Stable on home medications. (10) Pneumonia Problems: Patient was started on antibiotic therapy
[2017-02-21] MEDS: DILTIAZEM HCL 180 MG CAP.ER.24H PO SCH (08:39)
[2017-02-21] MEDS: METOPROLOL TARTRATE 50 MG TABLET PO SCH (08:40)
[2017-02-21] MEDS: MULTIVITAMIN 1 EACH TABLET PO SCH (08:40)
[2017-02-21] MEDS: DOCUSATE SODIUM 100 MG CAPSULE PO SCH (08:40)
[2017-02-21] MEDS: CALCIUM CARB 500/VIT D 200 1 EACH TABLET PO SCH (08:41)
[2017-02-21] MEDS: HYDROcodone /APAP 5/325 1 EACH TABLET PO PRN (08:41)
[2017-02-21] MEDS: MAGNESIUM OXIDE 400 MG TABLET PO SCH (08:43)
[2017-02-21] MEDS: PREGABALIN 50 MG CAPSULE PO SCH (08:47)
[2017-02-21] MEDS ORDERED: IPRATROPIUM/ALBUTEROL SULFATE 3 ML AMPUL.NEB NEB ONE (08:48)
[2017-02-21] MEDS: CEFDINIR 300 MG CAPSULE PO SCH (08:48)
[2017-02-21] MEDS: IPRATROPIUM/ALBUTEROL SULFATE 3 ML AMPUL.NEB NEB SCH (09:00)
[2017-02-21] MEDS ORDERED: AZITHROMYCIN 250 MG TABLET PO SCH (09:00)
[2017-02-21 10:19] VITALS: BP 136/76
--- NOTE | 2017-02-22 21:15 | Inpatient Progress Note ---
Subjective - Required Recertification Statement I anticipate X number of days because-include discharge plan: 7 - Review of Systems Events since last encounter: Patient seemed to be doing well progressing well with his physical and occupational therapy at this time. Patient stated it having some pain associated with his hip replacement but it does seem to be improving. Patient denies any complication problems. Patient atrial fibrillation has been stable. General: Appetite (good) HEENT: Denies: Head Aches Pulmonary: Denies: Dyspnea, Cough Cardiovascular: Denies: Chest Pain, Palpitations, Orthopnea Gastrointestinal: Denies: Nausea, Vomiting, Abdominal Pain, Constipation Objective - Exam Vitals and I&O: Vital Signs Temp 97.9 F 02/21/17 09:00 Pulse 94 H 02/21/17 09:00 Resp 20 02/21/17 09:00 BP 136/76 02/21/17 09:00 Pulse Ox 96 02/21/17 09:00 General: Alert, Oriented to Person, Oriented to Place, Oriented to Time, Cooperative Neck: Supple, No JVD Lungs: Clear to auscultation, Normal air movement, Speaks full Sentences, Respiratory Distress. No: Wheezes, Rales, Rhonchi Cardiovascular: Regular rate, Normal S1, Normal S2 Abdomen: Normal bowel sounds, Soft, No tenderness, No hepatospenomegaly Extremities: Other (wound healing well) Skin: Normal, [place], Warm, Dry Neurological: Normal gait, Normal speech Psych/Mental Status: Mental status NL, Mood NL, Appropriate Affect, Intact Judgment - Results Results: Laboratory Results WBC 8.10 K/ul (4.00-12.00) 02/20/17 17:35 RBC 3.98 M/ul (3.90-5.20) 02/20/17 17:35 Hgb 12.5 g/dL (12.0-18.0) 02/20/17 17:35 Hct 37.1 % (37.0-53.0) 02/20/17 17:35 MCV 93.2 fl (80.0-100.0) 02/20/17 17:35 MCH 31.4 pg (28.0-34.0) 02/20/17 17:35 MCHC 33.7 g/dL (30.0-36.0) 02/20/17 17:35 RDW 15.0 % (11.3-14.3) H 02/20/17 17:35 Plt Count 286 K/mm3 (130-400) 02/20/17 17:35 Neut % (Auto) 78.1 % (39.0-79.0) 02/20/17 17:35 Lymph % (Auto) 8.9 % (16.0-50.0) L 02/20/17 17:35 [place] % (Auto) 6.3 % (0.0-11.0) 02/20/17 17:35 Eos % (Auto) 4.4 % (0.0-6.8) 02/20/17 17:35 Baso % (Auto) 0.7 (0.0-1.5) 02/20/17 17:35 Neut # (Auto) 6.3 # k/uL (1.4-7.7) 02/20/17 17:35 Lymph # (Auto) 0.7 # k/uL (0.6-4.0) 02/20/17 17:35 [place] # (Auto) 0.5 # k/uL (0.0-0.9) 02/20/17 17:35 Eos # (Auto) 0.4 # k/uL (0.0-0.6) 02/20/17 17:35 Baso # (Auto) 0.1 # k/uL (0.0-0.5) 02/20/17 17:35 Reactive Lymphs % 1.5 % (0.0-5.0) 02/20/17 17:35 Reactive Lymphs # 0.1 # k/uL (0.0-0.8) 02/20/17 17:35 PT 16.6 Seconds (9.4-11.6) H 02/20/17 17:35 INR 1.57 (0.9-1.2) H 02/20/17 17:35 Sodium 134 mmol/L (136-145) L 02/17/17 07:00 Potassium 4.1 mmol/L (3.5-5.1) 02/17/17 07:00 Chloride 97 mmol/L (98-107) L 02/17/17 07:00 Carbon Dioxide 31 mmol/L (22-30) H 02/17/17 07:00 BUN 16 mg/dL (9-20) 02/17/17 07:00 Creatinine 1.00 mg/dL (0.66-1.25) 02/17/17 07:00 Estimated Creat Clear 86 02/17/17 07:00 Est GFR ( Amer) > 60 (60-) 02/17/17 07:00 Est GFR (Non-Af Amer) > 60 (60-) 02/17/17 07:00 Glucose 160 mg/dL (74-106) H 02/17/17 07:00 Calcium 8.7 mg/dL (8.4-10.2) 02/17/17 07:00 Total Bilirubin 0.8 mg/dL (0.2-1.3) 02/17/17 07:00 AST 17 U/L (15-46) 02/17/17 07:00 ALT 28 U/L (13-69) 02/17/17 07:00 Alkaline Phosphatase 64 U/L (38-126) 02/17/17 07:00 Total Protein 6.0 g/dL (6.3-8.2) L 02/17/17 07:00 Albumin 3.0 g/dL (3.5-5.0) L 02/17/17 07:00 Assessment/Plan - Assessment/Plan (1) Gait disturbance Status: Acute Assessment: improved (2) Atrial fibrillation Status: Chronic Qualifiers: Atrial fibrillation type: chronic Qualified Code(s): I48.2 - Chronic atrial fibrillation Assessment: stable (3) CAD (coronary artery disease) Status: Chronic Qualifiers: Coronary Disease-Associated Artery/Lesion type: [place] artery [place] vs. transplanted heart: [place] heart Associated angina: without angina Qualified Code(s): I25.10 - Atherosclerotic heart disease of [place] coronary artery without angina pectoris Comment: stable, will continuw with home meds Assessment: stable (4) PVD (peripheral vascular disease) Status: Chronic (5) Osteoarthritis of hip Status: Acute Qualifiers: Osteoarthritis type: primary (6) Diabetes type 2, controlled Status: Chronic Qualifiers: Diabetes mellitus complication status: without complication Diabetes mellitus usp insulin use: without usp use Qualified Code(s): E11.9 - Type 2 diabetes mellitus without complications (7) Essential hypertension Status: Chronic Assessment: stable on home meds (8) Adequate anticoagulation on anticoagulant therapy Status: Chronic (9) CHF (congestive heart failure), NYHA class III Status: Chronic Qualifiers: Congestive heart failure type: diastolic Congestive heart failure chronicity: chronic Qualified Code(s): I50.32 - Chronic diastolic (congestive ) heart failure Assessment: stable
== END 2017-02-21 10:31 | disposition home health service (06) | DRG 92 ==
LOC: SOUTH 16:10
PROVIDERS: ADMIT Family Medicine; ATTEND Family Medicine
DX: R26.89 Other abnormalities of gait and mobility (principal); I48.2 Chronic atrial fibrillation; I25.10 Atherosclerotic heart disease of native coronary artery without angina pectoris; E03.9 Hypothyroidism, unspecified; E11.9 Type 2 diabetes mellitus without complications; I10 Essential (primary) hypertension; I50.32 Chronic diastolic (congestive) heart failure; Z96.649 Presence of unspecified artificial hip joint; Z79.01 Long term (current) use of anticoagulants
CPT/HCPCS: 36415; 71020; 80053; 85025; 85610; 87070; J1650; A9270-GY

== ENCOUNTER 2017-02-24 10:39 | Inpatient (IN) | payer MEDICARE, OTHER ==
--- NOTE | 2017-02-24 10:50 | ED Physician Documentation ---
Dyspnea - HISTORIAN Historian: patient - HPI Chief Complaint: Dyspnea Additional Information: Patient was recently admitted to SNF following left hip revision. At the time of discharge he was felt to be developing a pneumonia and was started on antibiotic of azithromicin and cefdinir. Patient states that his breathing i worse. Hs been running a low grade fever and having some chills. Onset: days ago (4 days) Duration: continues in ED, worse Initiating Event: other (pneumonia) Severity: moderate Exacerbated By: exertion, coughing Associated Symptoms: chills, sweating, productive cough, heart racing. denies: fever, chest pain, chest discomfort, bloody cough - ROS CONST: weakness NEURO/PSYCH: denies: headache MS/SKIN/LYMPH: muscle aches. denies: neck pain - PAST HX Lung Disease: COPD Cardiac Disease: CAD, A-Fib PE Risk Factors: none Surgeries/Procedures: other (hip arthroplasty, catarct extraction, CAGB, inguinal hernia repair, TURP) Other History: other (DM type 2, prostate Ca, anticoagulation therapy) Immunizations: influenza, pneumovax Allergies/Adverse Reactions: Allergies Allergy/AdvReac Type Severity Reaction Status Date / Time No Known Allergies Allergy Verified 02/24/17 10:58 Home Medications: Ambulatory Orders Medication Instructions Recorded Levothyroxine Sodium [Synthroid] 100 mcg PO 0700 07/05/12 Calcium Carbonate [Calcium] 600 mg PO D 08/16/16 Magnesium Oxide [Magnesium] 400 mg PO BID 08/16/16 Comb No.42/Folic Acid 1 tab PO D 08/16/16 [Vitamedmd Redichew Rx Tab Chew] Azithromycin [Zithromax] 250 mg PO DAILY #3 tablet 02/20/17 Cefdinir 300 mg PO BID #20 capsule 02/20/17 Furosemide [Lasix] 40 mg PO 714 #60 tablet 02/20/17 Ipratropium/Albuterol Sulfate 3 ml NEB QID PRN #60 ampul.neb 02/20/17 [Duoneb] Metoprolol Tartrate [Lopressor] 50 mg PO BID #0 02/20/17 Pregabalin [Lyrica] 50 mg PO BID #60 capsule 02/20/17 Warfarin Sodium [Coumadin] 2.5 mg PO [id number] tablet 02/20/17 Warfarin Sodium [Coumadin] 5 mg PO [id number] tablet 02/20/17 traMADol HCL [Ultram] 50 mg PO Q6H PRN #30 tablet 02/20/17 - SOCIAL HX Smoking History: non-smoker Alcohol Use: none Drug Use: none - FAMILY HX Family History: no significant history - VITAL SIGNS Vital Signs: Vital Signs Temp Pulse Resp BP Pulse Ox 136/76 02/21/17 09:00 - REVIEWED ASSESSMENTS Nursing Assessment Reviewed: Yes Vitals Reviewed: Yes ED Results Lab/Radiology - Radiology Radiology Impressions: Examination: PA and lateral chest. History: Evaluate lung joseph. Comparison exam: 20 February 2017 Findings: PA lateral chest demonstrate a prominent cardiac and mediastinal silhouette. Vascular calcifications involving aortic arch. Increased basilar infiltrates, Right greater than left. Blunting of the right costophrenic margin. Osseous structures are appropriate for age. Impression: Continued right lower lobe pneumonic infiltrate/effusion - increased from previous examination. Dyspnea Physical Exam - EXAM General Appearance: alert, mild distress EENT: ENT inspection normal, pharynx normal, no signs of dehydration Neck: nml inspection. No: lymphadenopathy, thyromegaly Respiratory: breath sounds nml, no pain on inspiration, speaks full sentences, respiratory distress (mild), wheezes (bilateral), rales (RLL), rhonchi (course bilateral R>L) CVS: no murmur, no gallop, irregularly irreg. rhythm Abdomen: non-tender, no organomegaly, no distention Skin: color nml, no rash Extremities: non-tender, normal range of motion, no evidence of injury, edema ( trace) Neuro/Psych: oriented x3, CN's nml as tested, motor nml, sensation nml, mood/ affect nml Discharge Clincal Impression: History of prostate cancer, Essential hypertension, Adequate anticoagulation on anticoagulant therapy RLL pneumonia Qualifiers: Pneumonia type: due to unspecified organism Qualified Code(s): J18.1 - Lobar pneumonia, unspecified organism CHF (congestive heart failure), NYHA class III Qualifiers: Congestive heart failure type: systolic Congestive heart failure chronicity: chronic Qualified Code(s): I50.22 - Chronic systolic (congestive) heart failure CAD (coronary artery disease) Qualifiers: Coronary Disease-Associated Artery/Lesion type: [place] artery [place] vs. transplanted heart: [place] heart Associated angina: without angina Qualified Code(s): I25.10 - Atherosclerotic heart disease of [place] coronary artery without angina pectoris Hypothyroidism Qualifiers: Hypothyroidism type: unspecified Qualified Code(s): E03.9 - Hypothyroidism, unspecified Diabetes type 2, controlled Qualifiers: Diabetes mellitus complication status: with neurologic complications Diabetes mellitus complication detail: with polyneuropathy Diabetes mellitus detention insulin use: without detention use Qualified Code(s): E11.42 - Type 2 diabetes mellitus with diabetic polyneuropathy Condition: Stable Disposition: 02 XFER [facility] Decision to Admit: [id number] Date of Decison to Admit: 02/24/17 Decision Time: 11:26
[2017-02-24] MEDS ORDERED: IPRATROPIUM/ALBUTEROL SULFATE 3 ML AMPUL.NEB NEB ONE (10:52)
[2017-02-24 11:40] LABS: BASOPHILS % 0.8 (0.0-1.5); EOSINOPHILS % 2.5 % (0.0-6.8); MEAN CORPUSCULAR HEMOGLOBIN 31.1 pg (28.0-34.0); MEAN CORPUSCULAR VOLUME 96.3 fl (80.0-100.0); MONOCYTES % 6.8 % (0.0-11.0); NEUTROPHILS # 4.7 # k/uL (1.4-7.7)
[2017-02-24 11:55] LABS: eGFR (African) > 60; eGFR (Non-African) > 60
[2017-02-24] MEDS ORDERED: WARFARIN SODIUM 5 MG TABLET PO ONE ×2 (12:43→13:29)
--- NOTE | 2017-02-24 12:45 | History and Physical Report ---
History of Present Illnes - History of Present Illness Reason for Visit: dyspnea s History of Present Illness: Patient was recently admitted to SNF following left hip revision. At the time of discharge he was felt to be developing a pneumonia and was started on antibiotic of azithromicin and cefdinir. Patient states that his breathing has gotten worse. He has been running a low grade fever and having some chills. Patient states that he has developed a productive cough up some green to yellow phlegm. Patient denies any hemoptysis. Patient had been using nebulized treatments on a regular basis but only minimal improvement. Patient denied any chest pain chest pressure. Patient denies any orthopnea patient subsequently came to the emergency room for evaluation. [place] that his right lower lobe pneumonia has progressed. Patient was subsequently admitted to the hospital for further care and evaluation. On admission to the ED patient SAo2 was 85% on room air. It did come up to 94% with oxygen at two liters per nasal cannula. 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 Alcohol: None Drugs: None Lives: With Family Domestic Violence: Negative - Health Maintenance Health Maintenance: Cholesterol, Influenza Vaccine (in 2017), Pneumococcal Vaccine (13 in 2017), Colonoscopy (in 2013) Pneumonia Vaccine: Yes Resuscitation Status: Resusciation Status Resuscitation Status Do Not Resuscitate - Unable to Obtain History Unable to Obtain: No Review of Systems - Review of Systems Constitutional: Fever, Chills, Weakness Eyes: negative: pain, vision change, redness ENT: negative: Ear Pain, Ear Discharge, Nose Pain, Nose Discharge, Nose Congestion, Mouth Pain, Throat Pain, Throat Swelling Respiratory: Cough, Shortness of Breath, SOB with Excertion, Sputum. negative: Hemoptysis, Pleuritic Pain, Wheezing Cardiovascular: negative: Chest Pain, Palpitations, Orthopnea, Edema, [place]adedness Gastrointestinal: negative: Nausea, Vomiting, Abdominal Pain, Diarrhea, Constipation, Melena, Hematochezia Genitourinary: negative: Dysuria, Frequency, Hematuria, Retention Musculoskeletal: Back Pain, Leg Pain (right hip) Skin: negative: Rash Neurological: Weakness. negative: Numbness, Confusion, Seizures - Medications/Allergies Allergies/Adverse Reactions: Allergies Allergy/AdvReac Type Severity Reaction Status Date / Time No Known Allergies Allergy Verified 02/24/17 10:58 Current Inpatient Medications: Current Inpatient Medications Albuterol/Ipratropium (Duoneb) 3 ml NEB Q4 [facility] Ceftriaxone Sodium (Rocephin) 1 gm IV QD [facility] Furosemide (Lasix) 40 mg PO 714 [facility] Azithromycin 500 mg/ Sodium (Chloride) 250 mls @ 125 mls/hr IV Q24H [facility] Stop: 03/06/17 12:59 Levothyroxine Sodium (Synthroid) 100 mcg PO 0700 [facility] Magnesium Oxide (Mag-Oxide) 400 mg PO BID [facility] Metoprolol Tartrate (Lopressor) 50 mg PO BID [facility] Miscellaneous (Chem Sticks) 1 each CHEMQID [facility] Pregabalin (Lyrica) 50 mg PO BID [facility] Sodium Chloride (Normal Saline Flush) 3 ml IV BID [facility] Tramadol HCl (Ultram) 50 mg PO Q6H PRN PRN Reason: PAIN Warfarin Sodium (Coumadin) 2.5 mg PO [id number] [facility] Warfarin Sodium (Coumadin) 5 mg PO [id number] [facility] Warfarin Sodium (Coumadin) 10 mg PO NOW ONE Stop: 02/24/17 12:44 Exam - Exam Vital Signs: Vital Signs (72 hours) 02/24/17 11:57 Temperature 97.6 F Pulse Rate [ 91 H Left Pulse ox] Respiratory 20 Rate Blood Pressure 99/62 [Right Arm] O2 Sat by Pulse 93 Oximetry General: Alert, Oriented to Person, Oriented to Place, Oriented to Time, Cooperative, Mild distress HEENT: Atraumatic, PERRLA, EOMI, Mouth Mucous membr. moist/[place], Nose Mucous membr. moist/[place], Decreased Hearing Acuity Neck: Normal Range of Motion Carotids: WNL Thyroid: WNL Lungs: Normal air movement, Speaks full Sentences, Wheezes, Rales (RLL local pocketable one 400 noncompliant of how man can't come to [place] or something okay what what we start them on some home glyburide for milligrams that should be a lot cheaper that you be like on the [employer] for doubtless you for milligrams once a day okay), Rhonchi (bilateral R>L) Cardiovascular: Regular rate, Normal S1, Normal S2, No murmurs Abdomen: Normal bowel sounds, Soft, No tenderness, No hepatospenomegaly, No masses Integumentary: Normal, [place], Warm, Dry Extremities: No clubbing, No cyanosis, No edema, Normal pulses, No tenderness/ swelling Neurological: Normal gait, Normal speech, Strength Equal Bilat, Normal tone, Sensation intact, Cranial nerves 3-12 NL, Reflexes 2+ Psych/Mental Status: Mental status NL, Mood NL, Appropriate Affect, Intact Judgment Assessment/Plan - Assessment/Plan (1) RLL pneumonia Status: Acute Assessment: blood cultures drawn, will continue with azithromycin and start rocephin. We will continue with supplemental oxygen therapy. Patient will be started on nebulized treatments on a routine basis. We will follow patient WBC and chest x- rays. (2) Adequate anticoagulation on anticoagulant therapy Status: Chronic Assessment: Patient INR is sub therapeutic at this time. Will go ahead and give the patient 10 mg of Coumadin today and recheck INR on a daily basis until it is within therapeutic range. (3) CAD (coronary artery disease) Status: Chronic Qualifiers: Coronary Disease-Associated Artery/Lesion type: [place] artery [place] vs. transplanted heart: [place] heart Associated angina: without angina Qualified Code(s): I25.10 - Atherosclerotic heart disease of [place] coronary artery without angina pectoris Comment: stable, will continuw with home meds Assessment: Continue home medications. (4) CHF (congestive heart failure), NYHA class III Status: Chronic Qualifiers: Congestive heart failure type: systolic Congestive heart failure chronicity : chronic Qualified Code(s): I50.22 - Chronic systolic (congestive) heart failure Assessment: Continue home medications. (5) Diabetes type 2, controlled Status: Chronic Qualifiers: Diabetes mellitus complication status: with neurologic complications Diabetes mellitus complication detail: with polyneuropathy Diabetes mellitus half-way insulin use: without half-way use Qualified Code(s): E11.42 - Type 2 diabetes mellitus with diabetic polyneuropathy Assessment: I will continue home medications. Patient will have his blood sugars checked on a regular basis. (6) Essential hypertension Status: Chronic Assessment: Continue home medications. (7) Hypothyroidism Status: Chronic Qualifiers: Hypothyroidism type: unspecified Qualified Code(s): E03.9 - Hypothyroidism , unspecified Assessment: Continue home medications. VTE Assessment - RISK FACTOR SCORE VTE RISK FACTOR SCORES: AGE OVER 60 YEARS, ACUTE INFECTION OTHER THEN SEPSIS, ANTICIPATED BED CONFINEMENT OR IMMOBILIZATION > 24 HOURS - RISK VTE HIGH RISK: SCORE OF 3-4 (RISK PROXIMAL DVT 4-8%) PROPHYLAXIS NEEDED ( patient is on Coumadin therapy at this time.)
--- NOTE | 2017-02-24 12:45 | Diagnostic Imaging Report ---
HOMER JO [facility] [id number] [facility] [address] [address] Report Submission Date: Feb 24, 2017 11:19:22 AM CARTON REPAIRER Patient Study Name: SHANNAN BRYANT Date: Feb 24, 2017 11:00:55 AM CARTON REPAIRER Modality Type: CR Gender: M Description: CHEST : 40 Institution: [facility] Physician: HOMER JO Examination: PA and lateral chest. History: Evaluate lung joseph. Comparison exam: 20 February 2017 Findings: PA lateral chest demonstrate a prominent cardiac and mediastinal silhouette. Vascular calcifications involving aortic arch. Increased basilar infiltrates, Right greater than left. Blunting of the right costophrenic margin. Osseous structures are appropriate for age. Impression: Continued right lower lobe pneumonic infiltrate/effusion - increased from previous examination. Electronically signed on Feb 24, 2017 11:19:22 AM CARTON REPAIRER by: João STRANGE
[2017-02-24] MEDS ORDERED: cefTRIAXone SODIUM 1 GM VIAL IV SCH (13:00)
[2017-02-24] MEDS ORDERED: SALINE FLUSH 10 ML DISP.SYRIN IVF ONE (13:28)
[2017-02-24] MEDS ORDERED: FUROSEMIDE 40 MG TABLET PO ONE (13:28)
[2017-02-24] MEDS ORDERED: METOPROLOL TARTRATE 50 MG TABLET ONE (13:29)
[2017-02-24] MEDS: FUROSEMIDE 40 MG TABLET PO SCH (13:45)
[2017-02-24] MEDS: IPRATROPIUM/ALBUTEROL SULFATE 3 ML AMPUL.NEB NEB SCH ×3 (13:50→21:00)
[2017-02-24] MEDS: AZITHROMYCIN 500 MG in 0.9 % SODIUM CHLORIDE 250 ML IV SCH (14:25)
[2017-02-24 14:45] LABS: APPEARANCE,URINE Clear (CLEAR); COLOR,URINE Yellow (YELLOW); OCCULT BLOOD,URINE Negative (NEGATIVE); UROBILINOGEN URINE 0.2 Eu (0.2-1.0)
[2017-02-24 15:13] VITALS: BMI 33.2
[2017-02-24] MEDS: traMADol HCL 50 MG TABLET PO PRN (16:07)
[2017-02-24] MEDS: cefTRIAXone SODIUM 1 GM in 0.9 % SODIUM CHLORIDE 100 ML IV SCH (16:30)
[2017-02-24] MEDS ORDERED: WARFARIN SODIUM 5 MG TABLET PO SCH (18:00)
[2017-02-24] MEDS: METOPROLOL TARTRATE 50 MG TABLET PO SCH (19:57)
[2017-02-24] MEDS: MAGNESIUM OXIDE 400 MG TABLET PO SCH (19:57)
[2017-02-24] MEDS: PREGABALIN 50 MG CAPSULE PO SCH (19:59)
[2017-02-24] MEDS: SALINE FLUSH 10 ML DISP.SYRIN IV SCH (21:00)
[2017-02-25] MEDS: IPRATROPIUM/ALBUTEROL SULFATE 3 ML AMPUL.NEB NEB SCH ×6 (01:35→20:50)
[2017-02-25] MEDS: LEVOTHYROXINE SODIUM 100 MCG TABLET PO SCH (05:28)
[2017-02-25] MEDS: FUROSEMIDE 40 MG TABLET PO SCH ×2 (05:28→13:37)
[2017-02-25 08:13] LABS: BASOPHILS % 0.6 (0.0-1.5); EOSINOPHILS % 3.1 % (0.0-6.8); MEAN CORPUSCULAR VOLUME 92.8 fl (80.0-100.0); MONOCYTES % 11.3 % (0.0-11.0); NEUTROPHILS # 3.1 # k/uL (1.4-7.7)
[2017-02-25] MEDS: MAGNESIUM OXIDE 400 MG TABLET PO SCH ×2 (08:40→21:04)
[2017-02-25] MEDS: METOPROLOL TARTRATE 50 MG TABLET PO SCH ×2 (08:40→21:04)
[2017-02-25] MEDS: PREGABALIN 50 MG CAPSULE PO SCH ×2 (08:44→21:12)
[2017-02-25] MEDS: SALINE FLUSH 10 ML DISP.SYRIN IV SCH ×2 (09:00→21:04)
[2017-02-25] MEDS: traMADol HCL 50 MG TABLET PO PRN ×2 (10:21→23:46)
[2017-02-25] MEDS: AZITHROMYCIN 500 MG in 0.9 % SODIUM CHLORIDE 250 ML IV SCH (13:37)
[2017-02-25] MEDS: cefTRIAXone SODIUM 1 GM in 0.9 % SODIUM CHLORIDE 100 ML IV SCH (15:06)
[2017-02-25] MEDS ORDERED: WARFARIN SODIUM 2.5 MG TABLET PO SCH (18:00)
[2017-02-26] MEDS: IPRATROPIUM/ALBUTEROL SULFATE 3 ML AMPUL.NEB NEB SCH ×6 (01:33→21:01)
[2017-02-26] MEDS: FUROSEMIDE 40 MG TABLET PO SCH ×2 (05:36→14:19)
[2017-02-26] MEDS: LEVOTHYROXINE SODIUM 100 MCG TABLET PO SCH (05:36)
[2017-02-26] MEDS: traMADol HCL 50 MG TABLET PO PRN ×3 (05:38→20:56)
--- NOTE | 2017-02-26 08:19 | Inpatient Progress Note ---
Subjective - Required Recertification Statement I anticipate X number of days because-include discharge plan: 2 days - Review of Systems Events since last encounter: Pateint states that he is feeling better today. Seems to be breathing some better. No fever or chills noted. Hip pain is doing OK. General: Denies: Chills, Night Sweats Pulmonary: Dyspnea (impoved), Cough Cardiovascular: Denies: Palpitations Gastrointestinal: Denies: Nausea, Vomiting, Abdominal Pain, Diarrhea, Constipation Objective - Exam Vitals and I&O: Vital Signs Temp 98.8 F 02/26/17 05:47 Pulse 115 H 02/26/17 05:47 Resp 20 02/26/17 05:47 BP 147/94 02/26/17 05:47 Pulse Ox 99 02/26/17 05:47 Intake & Output 02/25/17 02/25/17 02/26/17 11:59 23:59 11:59 Intake Total 240 800 Output Total 600 850 Balance -360 -50 Weight 93.44 kg Intake: Oral 240 800 Output: Urine 600 850 Other: Voiding Method Urinal Urinal # Voids 3 General: Alert, Oriented to Person, Oriented to Place, Oriented to Time, Cooperative Lungs: Normal air movement, Speaks full Sentences, Wheezes (mild, improved from yesterday), Rhonchi (feww course upper airwy) Cardiovascular: Irregularly Irregular Abdomen: Normal bowel sounds, Soft, No tenderness - Results Results: Laboratory Results WBC 4.70 K/ul (4.00-12.00) 02/25/17 06:50 RBC 3.98 M/ul (3.90-5.20) 02/25/17 06:50 Hgb 12.3 g/dL (12.0-18.0) 02/25/17 06:50 Hct 36.9 % (37.0-53.0) L 02/25/17 06:50 MCV 92.8 fl (80.0-100.0) 02/25/17 06:50 MCH 31.0 pg (28.0-34.0) 02/25/17 06:50 MCHC 33.4 g/dL (30.0-36.0) 02/25/17 06:50 RDW 14.6 % (11.3-14.3) H 02/25/17 06:50 Plt Count 234 K/mm3 (130-400) 02/25/17 06:50 Neut % (Auto) 66.4 % (39.0-79.0) 02/25/17 06:50 Lymph % (Auto) 15.9 % (16.0-50.0) L 02/25/17 06:50 [place] % (Auto) 11.3 % (0.0-11.0) H 02/25/17 06:50 Eos % (Auto) 3.1 % (0.0-6.8) 02/25/17 06:50 Baso % (Auto) 0.6 (0.0-1.5) 02/25/17 06:50 Neut # (Auto) 3.1 # k/uL (1.4-7.7) 02/25/17 06:50 Lymph # (Auto) 0.7 # k/uL (0.6-4.0) 02/25/17 06:50 [place] # (Auto) 0.5 # k/uL (0.0-0.9) 02/25/17 06:50 Eos # (Auto) 0.1 # k/uL (0.0-0.6) 02/25/17 06:50 Baso # (Auto) 0.0 # k/uL (0.0-0.5) 02/25/17 06:50 Reactive Lymphs % 2.6 % (0.0-5.0) 02/25/17 06:50 Reactive Lymphs # 0.1 # k/uL (0.0-0.8) 02/25/17 06:50 PT 19.0 Seconds (9.4-11.6) H 02/25/17 06:50 INR 1.80 (0.9-1.2) H 02/25/17 06:50 Sodium 137 mmol/L (136-145) 02/24/17 11:35 Potassium 4.1 mmol/L (3.5-5.1) 02/24/17 11:35 Chloride 98 mmol/L (98-107) 02/24/17 11:35 Carbon Dioxide 29 mmol/L (22-30) 02/24/17 11:35 BUN 15 mg/dL (9-20) 02/24/17 11:35 Creatinine 1.00 mg/dL (0.66-1.25) 02/24/17 11:35 Estimated Creat Clear 187 02/24/17 11:35 Est GFR ( Amer) > 60 (60-) 02/24/17 11:35 Est GFR (Non-Af Amer) > 60 (60-) 02/24/17 11:35 Glucose 140 mg/dL (74-106) H 02/24/17 11:35 Calcium 8.6 mg/dL (8.4-10.2) 02/24/17 11:35 Total Bilirubin 0.6 mg/dL (0.2-1.3) 02/24/17 11:35 AST 21 U/L (15-46) 02/24/17 11:35 ALT 27 U/L (13-69) 02/24/17 11:35 Alkaline Phosphatase 88 U/L (38-126) 02/24/17 11:35 Total Protein 6.8 g/dL (6.3-8.2) 02/24/17 11:35 Albumin 3.6 g/dL (3.5-5.0) 02/24/17 11:35 Urine Color Yellow (YELLOW) 02/24/17 14:40 Urine Appearance Clear (CLEAR) 02/24/17 14:40 Urine pH 7.0 (5.0 - 8.0) 02/24/17 14:40 Ur Specific [place] 1.020 (1.010-1.030) 02/24/17 14:40 Urine Protein Negative mg/dL (NEGATIVE) 02/24/17 14:40 Urine Ketones Negative mg/dL (NEGATIVE) 02/24/17 14:40 Urine Occult Blood Negative (NEGATIVE) 02/24/17 14:40 Urine Nitrite Negative (NEGATIVE) 02/24/17 14:40 Urine Bilirubin Negative (NEGATIVE) 02/24/17 14:40 Urine Urobilinogen 0.2 Eu (0.2-1.0) 02/24/17 14:40 Ur Leukocyte Esterase Negative (NEGATIVE) 02/24/17 14:40 Urine Glucose Negative mg/dL (NEGATIVE) 02/24/17 14:40 Assessment/Plan - Assessment/Plan (1) RLL pneumonia Status: Acute Current Visit: Yes Qualifiers: Pneumonia type: due to unspecified organism Qualified Code(s): J18.1 - Lobar pneumonia, unspecified organism (2) Adequate anticoagulation on anticoagulant therapy Status: Chronic Current Visit: Yes (3) CAD (coronary artery disease) Status: Chronic Current Visit: Yes Qualifiers: Coronary Disease-Associated Artery/Lesion type: [place] artery [place] vs. transplanted heart: [place] heart Associated angina: without angina Qualified Code(s): I25.10 - Atherosclerotic heart disease of [place] coronary artery without angina pectoris Comment: stable, will continuw with home meds Assessment: stable, no chest pain (4) CHF (congestive heart failure), NYHA class III Status: Chronic Current Visit: Yes Qualifiers: Congestive heart failure type: systolic Congestive heart failure chronicity : chronic Qualified Code(s): I50.22 - Chronic systolic (congestive) heart failure Assessment: stable (5) Diabetes type 2, controlled Status: Chronic Current Visit: Yes Qualifiers: Diabetes mellitus complication status: with neurologic complications Diabetes mellitus complication detail: with polyneuropathy Diabetes mellitus terminal superintendent insulin use: without terminal superintendent use Qualified Code(s): E11.42 - Type 2 diabetes mellitus with diabetic polyneuropathy Assessment: has been doing well, 130-180 (6) Essential hypertension Status: Chronic Current Visit: Yes Assessment: stable on home meds
[2017-02-26] MEDS ORDERED: WARFARIN SODIUM 2.5 MG TABLET PO ONE (08:21)
[2017-02-26] MEDS: MAGNESIUM OXIDE 400 MG TABLET PO SCH ×2 (09:04→20:57)
[2017-02-26] MEDS: METOPROLOL TARTRATE 50 MG TABLET PO SCH ×2 (09:04→20:56)
[2017-02-26] MEDS: PREGABALIN 50 MG CAPSULE PO SCH ×2 (09:53→20:56)
[2017-02-26] MEDS: SALINE FLUSH 10 ML DISP.SYRIN IV SCH ×2 (10:56→20:57)
[2017-02-26] MEDS: AZITHROMYCIN 500 MG in 0.9 % SODIUM CHLORIDE 250 ML IV SCH (12:17)
--- NOTE | 2017-02-26 13:28 | Diagnostic Imaging Report ---
[facility]/MED SURG [facility] [id number] [address] [facility] [address] [address] Report Submission Date: Feb 26, 2017 1:23:33 PM HEAD GOLF COACH Patient Study Name: SHANNAN BRYANT Date: Feb 26, 2017 1:05:53 PM HEAD GOLF COACH Modality Type: CR Gender: M Description: PELVIS : 40 Institution: [facility] Physician: [facility] /MED SURG Examination: Plain film hip History: Hip discomfort Comparison exams: None provided Findings: 2 views of the hip demonstrates hip replacement. No fracture no dislocation. Extensive vascular calcifications. Impression: Hip replacement. No evidence for fracture or loosening. Electronically signed on Feb 26, 2017 1:23:33 PM HEAD GOLF COACH by: João STRANGE
[2017-02-26] MEDS: cefTRIAXone SODIUM 1 GM in 0.9 % SODIUM CHLORIDE 100 ML IV SCH (14:18)
[2017-02-26] MEDS ORDERED: WARFARIN SODIUM 5 MG TABLET PO SCH (18:00)
--- NOTE | 2017-02-26 19:59 | Inpatient Progress Note ---
Subjective - Required Recertification Statement I anticipate X number of days because-include discharge plan: 1 day - Review of Systems Events since last encounter: Patient breathing data continue to improve. Patient is on 1 L per nasal cannula at this time. Patient data is able to ambulate better without as much shortness of breath or dyspnea. Last night while getting into bed patient relates that a nurse took his left leg and swung it over on top of the right leg. Since that time patient has had some pain in the left hip area where he has had his hip revision surgery. Patient has noticed some swelling but no ecchymosis. Patient states she's been having increasing pain with ambulation and weight bearing. Pulmonary: Dyspnea (Improved), Cough (Improving) Cardiovascular: Denies: Chest Pain Gastrointestinal: Denies: Nausea, Vomiting, Abdominal Pain Objective - Exam Vitals and I&O: Vital Signs Temp 98.1 F 02/26/17 18:00 Pulse 135 H 02/26/17 18:00 Resp 20 02/26/17 18:00 BP 126/73 02/26/17 18:00 Pulse Ox 94 02/26/17 18:00 Intake & Output 02/25/17 02/26/17 02/26/17 23:59 11:59 23:59 Intake Total 800 240 480 Output Total 850 300 Balance -50 240 180 Weight 93.44 kg Intake: Oral 800 240 480 Output: Urine 850 300 Other: Voiding Method Urinal Urinal Urinal # Voids 3 1 General: Alert, Oriented to Person, Oriented to Place, Oriented to Time, Cooperative Lungs: Rhonchi (A few scattered bilaterally.). No: Wheezes, Prolonged Expiration Cardiovascular: Regular rate, Normal S1, Normal S2, No murmurs Abdomen: Normal bowel sounds, Soft, No tenderness, No masses Extremities: Other (There was tenderness to palpation over the left hip area. Mild swelling was noted over the left hip area. No ecchymosis could be appreciated at the time. No bony analogies were noted.) Skin: Normal, [place], Warm, Dry - Results Results: Laboratory Results WBC 4.70 K/ul (4.00-12.00) 02/25/17 06:50 RBC 3.98 M/ul (3.90-5.20) 02/25/17 06:50 Hgb 12.3 g/dL (12.0-18.0) 02/25/17 06:50 Hct 36.9 % (37.0-53.0) L 02/25/17 06:50 MCV 92.8 fl (80.0-100.0) 02/25/17 06:50 MCH 31.0 pg (28.0-34.0) 02/25/17 06:50 MCHC 33.4 g/dL (30.0-36.0) 02/25/17 06:50 RDW 14.6 % (11.3-14.3) H 02/25/17 06:50 Plt Count 234 K/mm3 (130-400) 02/25/17 06:50 Neut % (Auto) 66.4 % (39.0-79.0) 02/25/17 06:50 Lymph % (Auto) 15.9 % (16.0-50.0) L 02/25/17 06:50 [place] % (Auto) 11.3 % (0.0-11.0) H 02/25/17 06:50 Eos % (Auto) 3.1 % (0.0-6.8) 02/25/17 06:50 Baso % (Auto) 0.6 (0.0-1.5) 02/25/17 06:50 Neut # (Auto) 3.1 # k/uL (1.4-7.7) 02/25/17 06:50 Lymph # (Auto) 0.7 # k/uL (0.6-4.0) 02/25/17 06:50 [place] # (Auto) 0.5 # k/uL (0.0-0.9) 02/25/17 06:50 Eos # (Auto) 0.1 # k/uL (0.0-0.6) 02/25/17 06:50 Baso # (Auto) 0.0 # k/uL (0.0-0.5) 02/25/17 06:50 Reactive Lymphs % 2.6 % (0.0-5.0) 02/25/17 06:50 Reactive Lymphs # 0.1 # k/uL (0.0-0.8) 02/25/17 06:50 PT 19.0 Seconds (9.4-11.6) H 02/25/17 06:50 INR 1.80 (0.9-1.2) H 02/25/17 06:50 Sodium 137 mmol/L (136-145) 02/24/17 11:35 Potassium 4.1 mmol/L (3.5-5.1) 02/24/17 11:35 Chloride 98 mmol/L (98-107) 02/24/17 11:35 Carbon Dioxide 29 mmol/L (22-30) 02/24/17 11:35 BUN 15 mg/dL (9-20) 02/24/17 11:35 Creatinine 1.00 mg/dL (0.66-1.25) 02/24/17 11:35 Estimated Creat Clear 187 02/24/17 11:35 Est GFR ( Amer) > 60 (60-) 02/24/17 11:35 Est GFR (Non-Af Amer) > 60 (60-) 02/24/17 11:35 Glucose 140 mg/dL (74-106) H 02/24/17 11:35 Calcium 8.6 mg/dL (8.4-10.2) 02/24/17 11:35 Total Bilirubin 0.6 mg/dL (0.2-1.3) 02/24/17 11:35 AST 21 U/L (15-46) 02/24/17 11:35 ALT 27 U/L (13-69) 02/24/17 11:35 Alkaline Phosphatase 88 U/L (38-126) 02/24/17 11:35 Total Protein 6.8 g/dL (6.3-8.2) 02/24/17 11:35 Albumin 3.6 g/dL (3.5-5.0) 02/24/17 11:35 Urine Color Yellow (YELLOW) 02/24/17 14:40 Urine Appearance Clear (CLEAR) 02/24/17 14:40 Urine pH 7.0 (5.0 - 8.0) 02/24/17 14:40 Ur Specific [place] 1.020 (1.010-1.030) 02/24/17 14:40 Urine Protein Negative mg/dL (NEGATIVE) 02/24/17 14:40 Urine Ketones Negative mg/dL (NEGATIVE) 02/24/17 14:40 Urine Occult Blood Negative (NEGATIVE) 02/24/17 14:40 Urine Nitrite Negative (NEGATIVE) 02/24/17 14:40 Urine Bilirubin Negative (NEGATIVE) 02/24/17 14:40 Urine Urobilinogen 0.2 Eu (0.2-1.0) 02/24/17 14:40 Ur Leukocyte Esterase Negative (NEGATIVE) 02/24/17 14:40 Urine Glucose Negative mg/dL (NEGATIVE) 02/24/17 14:40 Assessment/Plan - Assessment/Plan (1) RLL pneumonia Status: Acute Current Visit: Yes Qualifiers: Pneumonia type: due to unspecified organism Qualified Code(s): J18.1 - Lobar pneumonia, unspecified organism Assessment: Improving at the time. Will continue with IV antibiotic therapy. It is hoped that the patient can be discharged tomorrow. (2) Adequate anticoagulation on anticoagulant therapy Status: Chronic Current Visit: Yes (3) CAD (coronary artery disease) Status: Chronic Current Visit: Yes Qualifiers: Coronary Disease-Associated Artery/Lesion type: [place] artery [place] vs. transplanted heart: [place] heart Associated angina: without angina Qualified Code(s): I25.10 - Atherosclerotic heart disease of [place] coronary artery without angina pectoris Comment: stable, will continuw with home meds Assessment: stable (4) CHF (congestive heart failure), NYHA class III Status: Chronic Current Visit: Yes Qualifiers: Congestive heart failure type: systolic Congestive heart failure chronicity : chronic Qualified Code(s): I50.22 - Chronic systolic (congestive) heart failure Assessment: stable (5) Diabetes type 2, controlled Status: Chronic Current Visit: Yes Qualifiers: Diabetes mellitus complication status: with neurologic complications Diabetes mellitus complication detail: with polyneuropathy Diabetes mellitus fdc insulin use: without fdc use Qualified Code(s): E11.42 - Type 2 diabetes mellitus with diabetic polyneuropathy Assessment: Stable blood sugars have been in the mid 100 range. Patient is not had any hypoglycemic episode. (6) Essential hypertension Status: Chronic Current Visit: Yes Assessment: stable (7) Strain of left hip Status: Acute Current Visit: Yes Assessment: Patient will be started on physical and occupational therapy. Patient may need further rehab services.
[2017-02-26] MEDS: HYDROcodone /APAP 5/325 1 EACH TABLET PO PRN (23:50)
[2017-02-27] MEDS: IPRATROPIUM/ALBUTEROL SULFATE 3 ML AMPUL.NEB NEB SCH ×3 (00:30→08:36)
[2017-02-27] MEDS: FUROSEMIDE 40 MG TABLET PO SCH (06:19)
[2017-02-27] MEDS: LEVOTHYROXINE SODIUM 100 MCG TABLET PO SCH (06:19)
[2017-02-27] MEDS: MAGNESIUM OXIDE 400 MG TABLET PO SCH (08:34)
[2017-02-27] MEDS: METOPROLOL TARTRATE 50 MG TABLET PO SCH (08:34)
[2017-02-27] MEDS: SALINE FLUSH 10 ML DISP.SYRIN IV SCH (08:35)
[2017-02-27] MEDS: PREGABALIN 50 MG CAPSULE PO SCH (08:35)
[2017-02-27] MEDS ORDERED: DOCUSATE SODIUM 100 MG CAPSULE PO SCH (09:00)
[2017-02-27 09:04] VITALS: BP 121/75
[2017-02-27] MEDS: HYDROcodone /APAP 5/325 1 EACH TABLET PO PRN (09:44)
--- NOTE | 2017-03-13 15:39 | Discharge Summary ---
Discharge Summary - Discharge Sumary History of Present Illness: Patient was recently admitted to [facility] following left hip revision. At the time of discharge he was felt to be developing a pneumonia and was started on antibiotic of azithromicin and cefdinir. Patient states that his breathing has gotten worse. He has been running a low grade fever and having some chills. Patient states that he has developed a productive cough up some green to yellow phlegm. Patient denies any hemoptysis. Patient had been using nebulized treatments on a regular basis but only minimal improvement. Patient denied any chest pain chest pressure. Patient denies any orthopnea patient subsequently came to the emergency room for evaluation. [place] that his right lower lobe pneumonia has progressed. Patient was subsequently admitted to the hospital for further care and evaluation. On admission to the ED patient SAo2 was 85% on room air. It did come up to 94% with oxygen at two liters per nasal cannula. Condition at Discharge: Stable Home Medications: Ambulatory Orders Medication Instructions Recorded Levothyroxine Sodium [Synthroid] 100 mcg PO 0700 07/05/12 Calcium Carbonate [Calcium] 600 mg PO D 08/16/16 Magnesium Oxide [Magnesium] 400 mg PO BID 08/16/16 Comb No.42/Folic Acid 1 tab PO D 08/16/16 [Vitamedmd Redichew Rx Tab Chew] Furosemide [Lasix] 40 mg PO 714 #60 tablet 02/20/17 Ipratropium/Albuterol Sulfate 3 ml NEB QID PRN #60 ampul.neb 02/20/17 [Duoneb] Metoprolol Tartrate [Lopressor] 50 mg PO BID #0 02/20/17 Pregabalin [Lyrica] 50 mg PO BID #60 capsule 02/20/17 Warfarin Sodium [Coumadin] 2.5 mg PO [id number] tablet 02/20/17 Warfarin Sodium [Coumadin] 5 mg PO [id number] tablet 02/20/17 traMADol HCL [Ultram] 50 mg PO Q6H PRN #30 tablet 02/20/17 HYDROcodone /APAP 5/325 [[place] 1 each PO Q4 PRN tablet 02/27/17 5/325] Consultations this Visit: None Procedures this Visit: None Allergies/Adverse Reactions: Allergies Allergy/AdvReac Type Severity Reaction Status Date / Time No Known Allergies Allergy Verified 02/24/17 10:58 Discharge Summary: Patient was started on nebulized treatments with duoneb. Patient was started on supplemental oxygen therapy to keep as SaO2 greater than 90%. Patient was started on Rocephin and azithromycin for antibiotic therapy. Blood cultures were drawn and subsequently came back no growth.Patient breathing status did improve. Patient was able to ambulate without getting quite some dyspnea. Cough became less productive. Patient was some therapeutic on his INR on admission. Coumadin was increased. At the time of dismissal patient INR was 2.33. Patient atrial fibrillation remain stable during the hospitalization with no tachycardia bradycardia noted. Coronary artery disease did remain stable without any chest pain or chest pressure. Diabetes mellitus remain stable on home medication without a hyper hypoglycemic episodes. Patient did sustain a hip strain on the left side where he has had a total hip replacement done when an aide was helping him back in bed. Patient did have some ambulatory difficulties associated with this. Patient did have some swelling but no ecchymosis that developed in the hip area. Due to his inability to ambulate well and increase fall risk it was felt that he would benefit from further occupational physical therapy. Patient was subsequently admitted to the [facility]. - Final Diagnosis (1) RLL pneumonia Problems: Patient respiratory status has improved. . (2) Adequate anticoagulation on anticoagulant therapy Problems: Will continue with oral antibiotics until finished current therapy (3) CAD (coronary artery disease) Problems: stable (4) CHF (congestive heart failure), NYHA class III Problems: stable (5) Diabetes type 2, controlled Problems: stable (6) Essential hypertension Problems: stable (7) Hypothyroidism Problems: stable
== END 2017-02-27 12:40 | DRG 195 ==
LOC: ED 10:39 → SOUTH 11:45
PROVIDERS: ADMIT Family Medicine; ATTEND Family Medicine
DX: J18.1 Lobar pneumonia, unspecified organism (principal); I25.10 Atherosclerotic heart disease of native coronary artery without angina pectoris; I50.9 Heart failure, unspecified; I10 Essential (primary) hypertension; E11.9 Type 2 diabetes mellitus without complications; E03.9 Hypothyroidism, unspecified
CPT/HCPCS: 36415; 71020; 73502; 80053; 81002; 85025; 85610; 87040; 94640; 94760; 97110; 97116; 97161; 97165; 97535; A9270; J0456; J0696; J7050; 99222; 99232; 99238; 99283; 99284; S1016

== ENCOUNTER 2017-02-27 12:43 | Inpatient (IN) | payer MEDICARE, OTHER ==
[2017-02-27] MEDS ORDERED: traMADol HCL 50 MG TABLET ONE (13:03)
[2017-02-27] MEDS: traMADol HCL 50 MG TABLET PO PRN (13:10)
[2017-02-27] MEDS ORDERED: IPRATROPIUM/ALBUTEROL SULFATE 3 ML AMPUL.NEB NEB PRN (14:02)
[2017-02-27 15:45] VITALS: BMI 34.9
[2017-02-27] MEDS: WARFARIN SODIUM 2.5 MG TABLET PO SCH (18:26)
[2017-02-27] MEDS ORDERED: FUROSEMIDE 40 MG TABLET PO ONE (20:00)
[2017-02-27] MEDS ORDERED: LEVOTHYROXINE SODIUM 100 MCG TABLET ONE (20:01)
[2017-02-27] MEDS: METOPROLOL TARTRATE 50 MG TABLET PO SCH (21:35)
[2017-02-27] MEDS: CEFDINIR 300 MG CAPSULE PO SCH (21:35)
[2017-02-27] MEDS: MAGNESIUM OXIDE 400 MG TABLET PO SCH (21:36)
[2017-02-27] MEDS: PREGABALIN 50 MG CAPSULE PO SCH (21:36)
[2017-02-27] MEDS: HYDROcodone /APAP 5/325 1 EACH TABLET PO PRN (21:48)
[2017-02-28] MEDS: FUROSEMIDE 40 MG TABLET PO SCH ×2 (06:31→11:44)
[2017-02-28] MEDS: LEVOTHYROXINE SODIUM 100 MCG TABLET PO SCH (06:31)
[2017-02-28] MEDS: PREGABALIN 50 MG CAPSULE PO SCH ×2 (08:15→19:52)
[2017-02-28] MEDS: CEFDINIR 300 MG CAPSULE PO SCH ×2 (08:15→19:51)
[2017-02-28] MEDS: MULTIVITAMIN 1 EACH TABLET PO SCH (08:15)
[2017-02-28] MEDS: MAGNESIUM OXIDE 400 MG TABLET PO SCH ×2 (08:15→19:53)
[2017-02-28] MEDS: METOPROLOL TARTRATE 50 MG TABLET PO SCH ×2 (08:15→19:52)
[2017-02-28] MEDS: AZITHROMYCIN 250 MG TABLET PO SCH (08:15)
[2017-02-28] MEDS: HYDROcodone /APAP 5/325 1 EACH TABLET PO PRN ×2 (08:38→19:55)
[2017-02-28] MEDS: WARFARIN SODIUM 5 MG TABLET PO SCH (18:10)
[2017-03-01] MEDS: FUROSEMIDE 40 MG TABLET PO SCH ×2 (06:36→12:10)
[2017-03-01] MEDS: LEVOTHYROXINE SODIUM 100 MCG TABLET PO SCH (06:37)
[2017-03-01] MEDS: METOPROLOL TARTRATE 50 MG TABLET PO SCH ×2 (08:18→20:34)
[2017-03-01] MEDS: MULTIVITAMIN 1 EACH TABLET PO SCH (08:19)
[2017-03-01] MEDS: MAGNESIUM OXIDE 400 MG TABLET PO SCH ×2 (08:19→20:35)
[2017-03-01] MEDS: AZITHROMYCIN 250 MG TABLET PO SCH (08:19)
[2017-03-01] MEDS: PREGABALIN 50 MG CAPSULE PO SCH ×2 (08:23→20:38)
[2017-03-01] MEDS: CEFDINIR 300 MG CAPSULE PO SCH ×2 (08:23→20:34)
[2017-03-01] MEDS: HYDROcodone /APAP 5/325 1 EACH TABLET PO PRN ×3 (09:50→20:38)
[2017-03-01] MEDS: WARFARIN SODIUM 5 MG TABLET PO SCH (18:00)
[2017-03-02] MEDS: HYDROcodone /APAP 5/325 1 EACH TABLET PO PRN ×4 (04:10→20:49)
[2017-03-02] MEDS: LEVOTHYROXINE SODIUM 100 MCG TABLET PO SCH (05:58)
[2017-03-02] MEDS: FUROSEMIDE 40 MG TABLET PO SCH ×2 (05:58→12:01)
[2017-03-02] MEDS: traMADol HCL 50 MG TABLET PO PRN (06:00)
[2017-03-02] MEDS: PREGABALIN 50 MG CAPSULE PO SCH ×2 (10:23→20:49)
[2017-03-02] MEDS: MAGNESIUM OXIDE 400 MG TABLET PO SCH ×2 (10:24→20:49)
[2017-03-02] MEDS: METOPROLOL TARTRATE 50 MG TABLET PO SCH ×2 (10:24→20:49)
[2017-03-02] MEDS: CEFDINIR 300 MG CAPSULE PO SCH ×2 (10:24→20:50)
[2017-03-02] MEDS: AZITHROMYCIN 250 MG TABLET PO SCH (10:25)
[2017-03-02] MEDS: MULTIVITAMIN 1 EACH TABLET PO SCH (10:25)
[2017-03-02] MEDS: WARFARIN SODIUM 2.5 MG TABLET PO SCH (17:13)
[2017-03-03] MEDS: HYDROcodone /APAP 5/325 1 EACH TABLET PO PRN ×4 (04:04→21:39)
[2017-03-03] MEDS: FUROSEMIDE 40 MG TABLET PO SCH ×2 (06:04→13:01)
[2017-03-03] MEDS: LEVOTHYROXINE SODIUM 100 MCG TABLET PO SCH (06:04)
[2017-03-03] MEDS: CEFDINIR 300 MG CAPSULE PO SCH ×2 (08:52→19:46)
[2017-03-03] MEDS: MAGNESIUM OXIDE 400 MG TABLET PO SCH ×2 (08:52→19:46)
[2017-03-03] MEDS: METOPROLOL TARTRATE 50 MG TABLET PO SCH ×2 (08:52→19:46)
[2017-03-03] MEDS: MULTIVITAMIN 1 EACH TABLET PO SCH (08:52)
[2017-03-03] MEDS: PREGABALIN 50 MG CAPSULE PO SCH ×2 (08:55→19:46)
--- NOTE | 2017-03-03 10:44 | Inpatient Progress Note ---
Subjective - Required Recertification Statement I anticipate X number of days because-include discharge plan: 5 days - Review of Systems Pulmonary: Denies: Dyspnea, Cough Cardiovascular: Denies: Chest Pain Gastrointestinal: Constipation. Denies: Nausea Genitourinary: Denies: Dysuria, Frequency Objective - Exam Vitals and I&O: Vital Signs Temp 97.7 F 03/03/17 09:00 Pulse 117 H 03/03/17 09:00 Resp 22 03/03/17 09:00 BP 118/68 03/03/17 09:00 Pulse Ox 97 03/03/17 09:00 Intake & Output 03/02/17 03/02/17 03/03/17 11:59 23:59 11:59 Intake Total 120 1085 240 Output Total 1100 Balance -980 1085 240 Weight 95.254 kg 92.986 kg Intake: Oral 120 1085 240 Output: Urine 1100 Other: Voiding Method Urinal Urinal # Voids 3 3 2 General: Alert, Oriented to Person, Oriented to Place, Oriented to Time, Cooperative, No acute distress Neck: Supple Lungs: Speaks full Sentences, [place] (few right basilar). No: Respiratory Distress, Wheezes Cardiovascular: Regular rate, Normal S1, Normal S2, No murmurs Extremities: No clubbing, No cyanosis, No edema Skin: Normal, [place], Warm, Dry Neurological: Normal speech Psych/Mental Status: Mental status NL, Mood NL, Appropriate Affect - Results Results: Laboratory Results PT 24.1 Seconds (9.4-11.6) H 02/28/17 09:45 INR 2.28 (0.9-1.2) H 02/28/17 09:45 Assessment/Plan - Assessment/Plan (1) Gait disturbance Status: Acute Assessment: improving (2) RLL pneumonia Status: Acute Assessment: resolved, finished course of antibiotics (3) Strain of left hip Status: Acute Assessment: improving (4) Atrial fibrillation Status: Chronic Qualifiers: Assessment: stable with no bleeding problems
[2017-03-03] MEDS: WARFARIN SODIUM 5 MG TABLET PO SCH (17:38)
[2017-03-04] MEDS: FUROSEMIDE 40 MG TABLET PO SCH ×2 (05:49→12:54)
[2017-03-04] MEDS: LEVOTHYROXINE SODIUM 100 MCG TABLET PO SCH (05:49)
[2017-03-04] MEDS: METOPROLOL TARTRATE 50 MG TABLET PO SCH ×2 (08:14→20:37)
[2017-03-04] MEDS: MULTIVITAMIN 1 EACH TABLET PO SCH (08:14)
[2017-03-04] MEDS: MAGNESIUM OXIDE 400 MG TABLET PO SCH ×2 (08:14→20:37)
[2017-03-04] MEDS: CEFDINIR 300 MG CAPSULE PO SCH ×2 (08:16→20:38)
[2017-03-04] MEDS: PREGABALIN 50 MG CAPSULE PO SCH ×2 (08:16→20:37)
[2017-03-04] MEDS: HYDROcodone /APAP 5/325 1 EACH TABLET PO PRN (09:49)
[2017-03-04] MEDS: WARFARIN SODIUM 2.5 MG TABLET PO SCH (17:39)
[2017-03-04] MEDS ORDERED: MULTIVITAMIN 1 EACH TABLET ONE (22:48)
[2017-03-05] MEDS: LEVOTHYROXINE SODIUM 100 MCG TABLET PO SCH (06:07)
[2017-03-05] MEDS: FUROSEMIDE 40 MG TABLET PO SCH ×2 (06:07→12:54)
[2017-03-05] MEDS: METOPROLOL TARTRATE 50 MG TABLET PO SCH ×2 (09:38→21:05)
[2017-03-05] MEDS: CEFDINIR 300 MG CAPSULE PO SCH ×2 (09:38→21:05)
[2017-03-05] MEDS: HYDROcodone /APAP 5/325 1 EACH TABLET PO PRN (09:39)
[2017-03-05] MEDS: PREGABALIN 50 MG CAPSULE PO SCH ×2 (09:39→21:05)
[2017-03-05] MEDS: MULTIVITAMIN 1 EACH TABLET PO SCH (09:39)
[2017-03-05] MEDS: MAGNESIUM OXIDE 400 MG TABLET PO SCH ×2 (09:39→21:05)
[2017-03-05] MEDS: WARFARIN SODIUM 5 MG TABLET PO SCH (18:04)
[2017-03-06] MEDS: HYDROcodone /APAP 5/325 1 EACH TABLET PO PRN ×2 (00:50→08:58)
[2017-03-06] MEDS: FUROSEMIDE 40 MG TABLET PO SCH ×2 (06:24→12:55)
[2017-03-06] MEDS: LEVOTHYROXINE SODIUM 100 MCG TABLET PO SCH (06:24)
[2017-03-06] MEDS: METOPROLOL TARTRATE 50 MG TABLET PO SCH ×2 (08:17→21:11)
[2017-03-06] MEDS: MAGNESIUM OXIDE 400 MG TABLET PO SCH ×2 (08:17→21:11)
[2017-03-06] MEDS: MULTIVITAMIN 1 EACH TABLET PO SCH (08:17)
[2017-03-06] MEDS: PREGABALIN 50 MG CAPSULE PO SCH ×2 (08:22→21:11)
[2017-03-06] MEDS: WARFARIN SODIUM 2.5 MG TABLET PO SCH (18:27)
[2017-03-07] MEDS: LEVOTHYROXINE SODIUM 100 MCG TABLET PO SCH (06:05)
[2017-03-07] MEDS: FUROSEMIDE 40 MG TABLET PO SCH ×2 (06:05→11:58)
[2017-03-07] MEDS: PREGABALIN 50 MG CAPSULE PO SCH ×2 (08:50→20:31)
[2017-03-07] MEDS: HYDROcodone /APAP 5/325 1 EACH TABLET PO PRN (08:50)
[2017-03-07] MEDS: MULTIVITAMIN 1 EACH TABLET PO SCH (08:51)
[2017-03-07] MEDS: MAGNESIUM OXIDE 400 MG TABLET PO SCH ×2 (08:51→20:25)
[2017-03-07] MEDS: METOPROLOL TARTRATE 50 MG TABLET PO SCH ×2 (08:51→20:25)
[2017-03-07] MEDS ORDERED: SALINE FLUSH 10 ML DISP.SYRIN IVF ONE (09:20)
[2017-03-07] MEDS: WARFARIN SODIUM 5 MG TABLET PO SCH (17:13)
[2017-03-07] MEDS: traMADol HCL 50 MG TABLET PO PRN (20:25)
[2017-03-08] MEDS: traMADol HCL 50 MG TABLET PO PRN (07:57)
[2017-03-08] MEDS: PREGABALIN 50 MG CAPSULE PO SCH (07:58)
[2017-03-08] MEDS: FUROSEMIDE 40 MG TABLET PO SCH (07:58)
[2017-03-08] MEDS: METOPROLOL TARTRATE 50 MG TABLET PO SCH ×2 (07:59→08:00)
[2017-03-08] MEDS: MAGNESIUM OXIDE 400 MG TABLET PO SCH (07:59)
[2017-03-08] MEDS: MULTIVITAMIN 1 EACH TABLET PO SCH (07:59)
[2017-03-08] MEDS: LEVOTHYROXINE SODIUM 100 MCG TABLET PO SCH (08:03)
[2017-03-08 08:39] VITALS: BP 141/81
--- NOTE | 2017-04-14 15:45 | History and Physical Report ---
History of Present Illnes - History of Present Illness Reason for Visit: gait disturbance following pneumonia and recent hip revision History of Present Illness: 76-year-old white male who was recently admitted to [facility] SN[facility] unit for rehab services following a total hip replacement revision. Patient course was complicated by pneumonia. patient desired to be dismissed so he could attend his brother's . Patient was discharged with home health services. Within a week after discharge patient's breathing became worse. He started to have more wheezing and SOB. It appeared that patient had failed outpatient treatment and was admitted for more intensive treatement and IV antibiotics. . Appetite is good. Patient chronic medical problems including congestive heart failure, HTN, a fib and DM were stable. Patient did lose ground on his rehab associated with his hip revision during the admission and it was felt that he would benefit from further rehab services. 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 negative: Fever, Chills, Sweats Eyes: negative: pain, vision change ENT: negative: Ear Pain, Ear Discharge, Nose Pain, Nose Discharge, Nose Congestion, Throat Pain Respiratory: negative: Cough, Dry, Shortness of Breath, Hemoptysis, SOB with Excertion, Pleuritic Pain, Wheezing Cardiovascular: negative: Chest Pain, Palpitations, Light Headedness Gastrointestinal: negative: Nausea, Vomiting, Abdominal Pain, Diarrhea, Constipation, Melena, Hematochezia Genitourinary: negative: Dysuria, Frequency, Incontinence Musculoskeletal: Leg Pain (left) Skin: negative: Rash Neurological: negative: Weakness, Numbness, Incoordination, Change in Speech, Confusion - Medications/Allergies Allergies/Adverse Reactions: Allergies Allergy/AdvReac Type Severity Reaction Status Date / Time No Known Allergies Allergy Verified 02/24/17 10:58 Exam - Exam General: Alert, Oriented to Person, Oriented to Place, Oriented to Time, Cooperative, Mild distress HEENT: Atraumatic, PERRLA, EOMI, Mouth Mucous membr. moist/[place], Nose Mucous membr. moist/[place], Dentition Normal, Decreased Hearing Acuity. No: Pharyngeal Erythema Neck: Normal Range of Motion Carotids: WNL Thyroid: WNL Lungs: Clear to auscultation, Normal air movement, Speaks full Sentences. No: Wheezes, Rales, Rhonchi Cardiovascular: Normal S1, Normal S2, No murmurs, Irregularly Irregular. No: Gallops, Rubs Abdomen: Normal bowel sounds, Soft, No tenderness, No hepatospenomegaly, No masses Integumentary: Normal, [place], Warm, Dry Extremities: No clubbing, No cyanosis, No edema, Normal pulses, No tenderness/ swelling Neurological: Normal gait, Normal speech, Strength Equal Bilat, Normal tone, Sensation intact, Cranial nerves 3-12 NL, Reflexes 2+ Psych/Mental Status: Mental status NL, Mood NL, Appropriate Affect, Intact Judgment - Laboratory Results Laboratory Results: Laboratory Results 02/28/17 03/05/17 03/07/17 09:45 06:50 07:45 PT 24.1 H 16.8 H 15.9 H INR 2.28 H 1.59 H 1.50 H Assessment/Plan - Assessment/Plan (1) Gait disturbance Status: Acute Assessment: related to recent femoral fracture (2) RLL pneumonia Status: Acute Qualifiers: Pneumonia type: due to unspecified organism Qualified Code(s): J18.1 - Lobar pneumonia, unspecified organism (3) Strain of left hip Status: Acute Assessment: continue with PT and OT. (4) Atrial fibrillation Status: Chronic Qualifiers: Comment: will continue with home medications VTE Assessment - RISK FACTOR SCORE VTE RISK FACTOR SCORES: AGE OVER 60 YEARS, ANTICIPATED BED CONFINEMENT OR IMMOBILIZATION > 24 HOURS - RISK VTE MODERATE RISK: SCORE OF 2 (RISK PROXIMAL DVT 2-4%) PROPHYAXIS NEEDED (on anticoagualtion therapy)
--- NOTE | 2017-04-14 15:56 | Discharge Summary ---
Discharge Summary - Discharge Sumary History of Present Illness: 76-year-old white male who was recently admitted to [facility] SNF unit for rehab services following a total hip replacement revision. Patient course was complicated by pneumonia. patient desired to be dismissed so he could attend his brother's . Patient was discharged with home health services. Within a week after discharge patient's breathing became worse. He started to have more wheezing and SOB. It appeared that patient had failed outpatient treatment and was admitted for more intensive treatement and IV antibiotics. . Appetite is good. Patient chronic medical problems including congestive heart failure, HTN, a fib and DM were stable. Patient did lose ground on his rehab associated with his hip revision during the admission and it was felt that he would benefit from further rehab services. Condition at Discharge: Stable Home Medications: Ambulatory Orders Medication Instructions Recorded Magnesium Oxide [Magnesium] 400 mg PO DAILY 08/16/16 traMADol HCL [Ultram] 50 mg PO Q6H PRN #30 tablet 02/20/17 Bisacodyl [Dulcolax] 2 tab PO DAILY PRN 03/20/17 Diltiazem HCl [Diltiazem 24Hr Cd] 180 mg PO DAILY 03/20/17 Furosemide [Lasix] 40 mg PO 0700,1200 03/20/17 Levothyroxine Sodium [Unithroid] 100 mcg PO 0700 03/20/17 Metoprolol Tartrate [Lopressor] 100 mg PO BID 03/20/17 [place]-3 Fatty Acids/Fish Oil [Fish 1 cap PO DAILY 03/20/17 Oil 1,000 mg Softgel] Potassium Chloride [Klor-Con M20] 20 meq PO BID 03/20/17 Pregabalin [Lyrica] 75 mg PO BID 03/20/17 Tamsulosin HCl [Flomax] 1 cap PO 1700 03/20/17 Warfarin Sodium [Coumadin] 1 tab PO 1800 03/20/17 oxyCODONE HCL/ACETAMINOPHEN 1 tab PO Q6 PRN 03/20/17 [Percocet 5/325] DULoxetine HCL [Cymbalta] 30 mg PO DAILY #90 capsule. 04/02/17 Melatonin 5 mg PO HS PRN #30 capsule 04/02/17 Consultations this Visit: None Procedures this Visit: None Allergies/Adverse Reactions: Allergies Allergy/AdvReac Type Severity Reaction Status Date / Time No Known Allergies Allergy Verified 02/24/17 10:58 Discharge Summary: Patient was started on physical and occupational therapy. Patient is highly motivated and did participate well with therapy. Patient did make significant improvement in his ability to ambulate and transfer three in his sniff course. Patient did finish out his course of oral antibiotics for his pneumonia. Patient breathing status continue to slowly improve. Patient other chronic medical problems including congestive heart failure diabetes mellitus and coronary artery disease remains stable during his skilled therapy. Patient was subsequently discharged in stable condition. - Final Diagnosis (1) Gait disturbance Problems: improved (2) RLL pneumonia Problems: improved (3) Strain of left hip Problems: improved (4) Atrial fibrillation Problems: stable on home medication. Continue with anticoagulation with warfarin.
== END 2017-03-08 08:39 | disposition home or self-care (01) | DRG 91 ==
LOC: SOUTH 12:43
PROVIDERS: ADMIT Family Medicine; ATTEND Family Medicine
DX: R26.89 Other abnormalities of gait and mobility (principal); J18.9 Pneumonia, unspecified organism; I48.91 Unspecified atrial fibrillation; Z79.01 Long term (current) use of anticoagulants; E11.9 Type 2 diabetes mellitus without complications; I10 Essential (primary) hypertension; E03.9 Hypothyroidism, unspecified
CPT/HCPCS: 36415; 85610; A9270-GY

== ENCOUNTER 2017-03-20 14:25 | Inpatient (IN) | payer MEDICARE, OTHER ==
[2017-03-20] MEDS ORDERED: oxyCODONE/ACETAMINOPHEN 5/325 TABLET PO ONE (15:12)
[2017-03-20] MEDS: oxyCODONE/ACETAMINOPHEN 5/325 TABLET PO SCH ×2 (15:26→19:15)
[2017-03-20] MEDS ORDERED: BISACODYL 5 MG TABLET.DR PO PRN (17:10)
[2017-03-20] MEDS ORDERED: oxyCODONE/ACETAMINOPHEN 5/325 TABLET PO PRN (17:10)
[2017-03-20] MEDS ORDERED: WARFARIN SODIUM 5 MG TABLET PO SCH (18:00)
[2017-03-20 18:44] VITALS: BMI 36.4
[2017-03-20] MEDS: PREGABALIN 50 MG CAPSULE PO SCH ×2 (19:15→20:20)
[2017-03-20] MEDS: traMADol HCL 50 MG TABLET PO PRN (20:20)
[2017-03-20] MEDS: POTASSIUM CHLORIDE 20 MEQ TABLET.ER PO SCH (20:23)
[2017-03-20] MEDS: METOPROLOL TARTRATE 50 MG TABLET PO SCH (20:24)
[2017-03-20] MEDS ORDERED: PREGABALIN 75 MG PO SCH (21:00)
[2017-03-21] MEDS: FUROSEMIDE 40 MG TABLET PO SCH ×2 (05:48→11:50)
[2017-03-21] MEDS: LEVOTHYROXINE SODIUM 100 MCG TABLET PO SCH (05:48)
[2017-03-21 06:57] LABS: MEAN CORPUSCULAR HEMOGLOBIN 29.4 pg (28.0-34.0); MEAN CORPUSCULAR VOLUME 93.3 fl (80.0-100.0)
[2017-03-21 07:09] LABS: eGFR (African) > 60; eGFR (Non-African) > 60
[2017-03-21] MEDS: traMADol HCL 50 MG TABLET PO PRN (07:24)
[2017-03-21 07:31] LABS: SEGMENTED NEUTROPHILS % 83 % (39-79)
[2017-03-21 07:32] LABS: EOSINOPHILS % 5 % (0-7); HYPOCHROMASIA 1+ (NEGATIVE); MONOCYTES % 3 % (0-11)
[2017-03-21] MEDS: PREGABALIN 50 MG CAPSULE PO SCH ×2 (08:37→20:20)
[2017-03-21] MEDS: POTASSIUM CHLORIDE 20 MEQ TABLET.ER PO SCH ×2 (08:37→19:54)
[2017-03-21] MEDS: DULoxetine HCL 30 MG CAPSULE.DR PO SCH (08:38)
[2017-03-21] MEDS: MAGNESIUM OXIDE 400 MG TABLET PO SCH (08:38)
[2017-03-21] MEDS: DILTIAZEM HCL 180 MG CAP.ER.24H PO SCH (08:38)
[2017-03-21] MEDS: METOPROLOL TARTRATE 50 MG TABLET PO SCH ×2 (08:38→19:55)
[2017-03-21] MEDS: OMEGA PO SCH (08:39)
[2017-03-21] MEDS: [UNRECOGNIZED DRUG - OTHER] PO SCH (08:39)
[2017-03-21] MEDS: FATTY ACIDS PO SCH (08:39)
[2017-03-21] MEDS: FISH OIL PO SCH (08:39)
[2017-03-21] MEDS: oxyCODONE/ACETAMINOPHEN 5/325 TABLET PO PRN ×2 (12:44→20:04)
[2017-03-21] MEDS ORDERED: TAMSULOSIN HCL 0.4 MG CAP.ER.24H PO SCH (17:00)
[2017-03-22] MEDS: oxyCODONE/ACETAMINOPHEN 5/325 TABLET PO PRN (01:55)
[2017-03-22] MEDS: FUROSEMIDE 40 MG TABLET PO SCH ×2 (05:57→12:02)
[2017-03-22] MEDS: LEVOTHYROXINE SODIUM 100 MCG TABLET PO SCH (05:57)
[2017-03-22] MEDS: METOPROLOL TARTRATE 50 MG TABLET PO SCH ×2 (09:08→20:04)
[2017-03-22] MEDS: PREGABALIN 50 MG CAPSULE PO SCH ×2 (09:08→20:04)
[2017-03-22] MEDS: DULoxetine HCL 30 MG CAPSULE.DR PO SCH (09:08)
[2017-03-22] MEDS: MAGNESIUM OXIDE 400 MG TABLET PO SCH (09:08)
[2017-03-22] MEDS: DILTIAZEM HCL 180 MG CAP.ER.24H PO SCH (09:08)
[2017-03-22] MEDS: POTASSIUM CHLORIDE 20 MEQ TABLET.ER PO SCH ×2 (09:08→20:04)
[2017-03-22] MEDS: FATTY ACIDS PO SCH (09:09)
[2017-03-22] MEDS: OMEGA PO SCH (09:09)
[2017-03-22] MEDS: FISH OIL PO SCH (09:09)
[2017-03-22] MEDS: [UNRECOGNIZED DRUG - OTHER] PO SCH (09:09)
[2017-03-22] MEDS ORDERED: FUROSEMIDE 40 MG TABLET PO ONE (11:44)
[2017-03-22] MEDS ORDERED: POTASSIUM CHLORIDE 20 MEQ TABLET.ER ONE (11:44)
[2017-03-22] MEDS ORDERED: METOPROLOL TARTRATE 50 MG TABLET ONE (11:45)
[2017-03-22] MEDS ORDERED: BISACODYL 5 MG TABLET.DR PO PRN (13:55)
[2017-03-22] MEDS: WARFARIN SODIUM 5 MG TABLET PO SCH (17:44)
[2017-03-22] MEDS: TAMSULOSIN HCL 0.4 MG CAP.ER.24H PO SCH (17:44)
[2017-03-22] MEDS: traMADol HCL 50 MG TABLET PO PRN (20:04)
[2017-03-23] MEDS: LEVOTHYROXINE SODIUM 100 MCG TABLET PO SCH (06:04)
[2017-03-23] MEDS: FUROSEMIDE 40 MG TABLET PO SCH ×2 (06:04→11:41)
--- NOTE | 2017-03-23 09:05 | Inpatient Progress Note ---
Subjective - Required Recertification Statement I anticipate X number of days because-include discharge plan: 7 - Review of Systems Events since last encounter: Saad is a little confused, especially at night. He has spent quite a bit of time calling out and being confused. This may be due to his oxycodone. He was on hydrocodone last time and did not have this effect. He says that his pain is fairly well controlled. He did not eat any breakfast today, but often does not at home. General: Denies: Chills, Night Sweats HEENT: Denies: Head Aches Pulmonary: Dyspnea (with exertion) Cardiovascular: Denies: Chest Pain Gastrointestinal: Denies: Nausea, Vomiting Genitourinary: Denies: Dysuria Musculoskeletal: Denies: Neck Pain Neurological: Confusion (at night). Denies: Weakness Objective - Exam Vitals and I&O: Vital Signs Temp 97.7 F 03/22/17 20:44 Pulse 84 03/22/17 21:00 Resp 16 03/22/17 21:00 BP 140/76 03/22/17 20:44 Pulse Ox 95 03/22/17 20:44 Intake & Output 03/22/17 03/22/17 03/23/17 11:59 23:59 11:59 Intake Total 360 750 220 Balance 360 750 220 Intake: Oral 360 750 220 Other: Voiding Method Urinal Urinal # Voids 2 3 3 General: Alert, Oriented to Person, Oriented to Place, Oriented to Time, Cooperative, Obese HEENT: Atraumatic, PERRLA Neck: Supple, No JVD Lungs: Clear to auscultation. No: Respiratory Distress Cardiovascular: Regular rate Abdomen: Normal bowel sounds, No tenderness Extremities: Other (Incision is approximated with torri and healing well.) Skin: No: Normal, [place] Neurological: Normal speech, Strength Equal Bilat Psych/Mental Status: Mental status NL - Results Results: Laboratory Results WBC 5.70 K/ul (4.00-12.00) 03/21/17 06:40 RBC 3.38 M/ul (3.90-5.20) L 03/21/17 06:40 Hgb 9.9 g/dL (12.0-18.0) L 03/21/17 06:40 Hct 31.5 % (37.0-53.0) L 03/21/17 06:40 MCV 93.3 fl (80.0-100.0) 03/21/17 06:40 MCH 29.4 pg (28.0-34.0) 03/21/17 06:40 MCHC 31.5 g/dL (30.0-36.0) 03/21/17 06:40 RDW 14.3 % (11.3-14.3) 03/21/17 06:40 Plt Count 311 K/mm3 (130-400) 03/21/17 06:40 Seg Neutrophils % 83 % (39-79) H 03/21/17 06:40 Band Neutrophils % 1 % (0-12) 03/21/17 06:40 Lymphocytes % 8 % (16-50) L 03/21/17 06:40 Monocytes % 3 % (0-11) 03/21/17 06:40 Eosinophils % 5 % (0-7) 03/21/17 06:40 Plt Morphology Comment Normal (NORMAL) 03/21/17 06:40 Polychromasia 1+ (NEGATIVE) H 03/21/17 06:40 Hypochromasia 1+ (NEGATIVE) H 03/21/17 06:40 RBC Morph Comment Abnormal (NORMAL) H 03/21/17 06:40 Sodium 138 mmol/L (136-145) 03/21/17 06:40 Potassium 4.0 mmol/L (3.5-5.1) 03/21/17 06:40 Chloride 97 mmol/L (98-107) L 03/21/17 06:40 Carbon Dioxide 29 mmol/L (22-30) 03/21/17 06:40 BUN 14 mg/dL (9-20) 03/21/17 06:40 Creatinine 0.80 mg/dL (0.66-1.25) 03/21/17 06:40 Estimated Creat Clear 110 03/21/17 06:40 Est GFR ( Amer) > 60 (60-) 03/21/17 06:40 Est GFR (Non-Af Amer) > 60 (60-) 03/21/17 06:40 Glucose 141 mg/dL (74-106) H 03/21/17 06:40 Calcium 8.5 mg/dL (8.4-10.2) 03/21/17 06:40 Total Bilirubin 1.2 mg/dL (0.2-1.3) 03/21/17 06:40 AST 25 U/L (15-46) 03/21/17 06:40 ALT 32 U/L (13-69) 03/21/17 06:40 Alkaline Phosphatase 87 U/L (38-126) 03/21/17 06:40 Total Protein 5.8 g/dL (6.3-8.2) L 03/21/17 06:40 Albumin 2.9 g/dL (3.5-5.0) L 03/21/17 06:40 Assessment/Plan - Assessment/Plan (1) Left femoral shaft fracture Status: Acute Current Visit: Yes Assessment: Healing without complication Plan: He remains toe touch currently. Plans are for films which will be sent to Dr. Chacko at the end of the week. (2) CAD (coronary artery disease) Status: Chronic Current Visit: No Qualifiers: Coronary Disease-Associated Artery/Lesion type: [place] artery [place] vs. transplanted heart: [place] heart Associated angina: without angina Qualified Code(s): I25.10 - Atherosclerotic heart disease of [place] coronary artery without angina pectoris Comment: stable, will continuw with home meds Assessment: No ischemia present (3) CHF (congestive heart failure), NYHA class III Status: Chronic Current Visit: No Qualifiers: Congestive heart failure type: systolic Congestive heart failure chronicity : chronic Qualified Code(s): I50.22 - Chronic systolic (congestive) heart failure Assessment: Well compensated (4) Diabetes type 2, controlled Status: Chronic Current Visit: No Qualifiers: Diabetes mellitus complication status: with neurologic complications Diabetes mellitus complication detail: with polyneuropathy Diabetes mellitus transcriptionist insulin use: without transcriptionist use Qualified Code(s): E11.42 - Type 2 diabetes mellitus with diabetic polyneuropathy Assessment: Well controlled (5) Essential hypertension Status: Chronic Current Visit: No Assessment: Well controlled
[2017-03-23] MEDS: PREGABALIN 50 MG CAPSULE PO SCH ×2 (10:28→20:52)
[2017-03-23] MEDS: METOPROLOL TARTRATE 50 MG TABLET PO SCH ×2 (10:29→20:51)
[2017-03-23] MEDS: DULoxetine HCL 30 MG CAPSULE.DR PO SCH (10:29)
[2017-03-23] MEDS: POTASSIUM CHLORIDE 20 MEQ TABLET.ER PO SCH ×2 (10:29→20:52)
[2017-03-23] MEDS: DILTIAZEM HCL 180 MG CAP.ER.24H PO SCH (10:30)
[2017-03-23] MEDS: MAGNESIUM OXIDE 400 MG TABLET PO SCH (10:30)
[2017-03-23] MEDS: FISH OIL 1,000 MG CAP PO SCH (10:30)
--- NOTE | 2017-03-23 10:32 | History and Physical Report ---
CHIEF COMPLAINT: Left closed displaced comminuted periprosthetic femur shaft fracture. HISTORY OF PRESENT ILLNESS: This is a 76-year-old male who recently underwent a left total hip arthroplasty. He was recovering pretty well until a few days ago when he fell and unfortunately incurred a comminuted femoral shaft fracture which was distal to the stem of the prosthesis. The prosthesis did remain stable but he returned to [facility] where Dr. Chacko was consulted and he had an open reduction and internal fixation of this periprosthetic fracture. PAST MEDICAL HISTORY: 1. History of obesity. 2. Diabetes mellitus type 2. 3. Hypertension. 4. Chronic atrial fibrillation, now with his rate controlled, although he had some rapid ventricular response when he was in the hospital. 5. Hyperlipidemia. 6. Hypothyroidism. 7. Chronic diastolic congestive heart failure. 8. Atherosclerotic coronary vascular disease. 9. Chronic mild renal insufficiency. 10. Peripheral neuropathy. 11. History of prostate cancer with residual BPH symptoms. PAST SURGICAL HISTORY: 1. Laparoscopic cholecystectomy. 2. Left hip arthroplasty and revision x2. 3. Recent open reduction and internal fixation of left femur fracture. 4. Appendectomy. 5. Tonsillectomy. 6. Full dental extraction. MEDICATIONS: He comes to us on the following medications: 1. Dulcolax 2 tablets daily. 2. Cardizem CD 180 mg daily. 3. Cymbalta 30 mg p.o. daily. 4. Lasix 40 mg p.o. b.i.d. 5. Levothyroxine 100 mcg daily. 6. Magnesium oxide 400 mg p.o. daily. 7. Metoprolol tartrate 100 mg p.o. b.i.d. 8. [place] 3 fatty acids 1 p.o. daily. 9. Oxycodone with acetaminophen 5/325 mg 1 to 2 p.o. every 6 hours. 10. Potassium chloride 20 mEq p.o. b.i.d. 11. Lyrica 150 mg p.o. b.i.d. 12. Flomax 0.4 mg p.o. in the p.m. 13. Tramadol 50 mg p.o. every 6 hours p.r.n. pain. 14. Warfarin, which was recently increased to 5 mg. ALLERGIES: He has no known drug allergies. CODE STATUS: He is a DO NOT RESUSCITATE. SOCIAL HISTORY: He is . His regular physician is Dr. Wagner. 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 He does not smoke. He does not drink alcohol. FAMILY HISTORY: Noncontributory. REVIEW OF SYSTEMS: He states he is generally feeling pretty well. He is having no fever, chills, nausea, or vomiting. He has a little bit of shortness of breath with exertion. He denies any abdominal pain. He has a good appetite. No constipation noted. Left hip pain as noted, not surprisingly, considering his surgery. No dysuria. No hesitancy. No constipation or diarrhea. He does have increased pedal edema in the left leg. PHYSICAL EXAMINATION: General: This is a very pleasant, alert, and oriented 76-year-old male. Vital Signs: T: 97.6, BP: 141/81. No other vitals have been taken yet. He just got here. HEENT: Showed him to have very thin hair. Nasal mucosa is not injected. He has false dentition. Mucous membranes are moist. Neck: No JVD. No carotid bruits. No thyroid masses. Lungs: Lungs have a little bit of decreased air movement in all lung joseph. Heart: Heart is irregularly irregular. No posterior crackles or wheezes or noted. Abdomen: Protuberant. He has no guarding. No rebound. No CVA tenderness. Genitalia: He is not circumcised. Testes are down bilaterally. No inguinal hernia. No rashes noted. Left Hip: Examination of his left hip shows actually a remarkably long surgical scar on his left hip from just above his left trochanter all the way down to just below the lateral aspect of his knee. It is actually healing very well and is approximated by torri. Minimal drainage is noted from the superior portion of the wound. Extremities: There is 1+ pedal edema noted in the left leg and trace pedal edema in the right leg. DIAGNOSTIC STUDIES: Laboratory shows him to have a hemoglobin drawn 2 days ago which was 10.9. The rest of his labs are pretty well controlled. He has been fairly normoglycemic. ASSESSMENT: 1. Left periprosthetic femur fracture. 2. Chronic atrial fibrillation with history of recent rapid ventricular response, now with rate controlled. 3. Diabetes mellitus type 2. Last A1c in January was 5.7, suggesting good control. 4. Hypertension, well controlled. 5. Hyperlipidemia, stable. 6. Hypothyroidism, currently on replacement therapy. 7. Chronic diastolic heart failure, well compensated. 8. Coronary artery disease without evidence of ongoing ischemia. 9. Remote history of a stroke. 10. Peripheral neuropathy. 11. Peripheral arterial disease. PLAN: 1. He is admitted. 2. He is currently toe touch only. 3. We will continue his sliding scale insulin. 4. I ordered CHEM-sticks. 5. Percocet for pain as noted. 6. Plan will be for him to be discharged to home when he goes home. ALEXANDR
[2017-03-23] MEDS: traMADol HCL 50 MG TABLET PO PRN (15:02)
[2017-03-23] MEDS: TAMSULOSIN HCL 0.4 MG CAP.ER.24H PO SCH (16:33)
[2017-03-23] MEDS: WARFARIN SODIUM 5 MG TABLET PO SCH (17:25)
[2017-03-23] MEDS: HYDROcodone /APAP 5/325 1 EACH TABLET PO PRN (18:38)
[2017-03-24] MEDS: HYDROcodone /APAP 5/325 1 EACH TABLET PO PRN ×3 (00:37→22:45)
[2017-03-24] MEDS: LEVOTHYROXINE SODIUM 100 MCG TABLET PO SCH (06:17)
[2017-03-24] MEDS: FUROSEMIDE 40 MG TABLET PO SCH ×2 (06:17→11:42)
[2017-03-24] MEDS: FISH OIL 1,000 MG CAP PO SCH (10:02)
[2017-03-24] MEDS: DULoxetine HCL 30 MG CAPSULE.DR PO SCH (10:02)
[2017-03-24] MEDS: METOPROLOL TARTRATE 50 MG TABLET PO SCH ×2 (10:02→19:54)
[2017-03-24] MEDS: DILTIAZEM HCL 180 MG CAP.ER.24H PO SCH (10:02)
[2017-03-24] MEDS: POTASSIUM CHLORIDE 20 MEQ TABLET.ER PO SCH ×3 (10:02→19:55)
[2017-03-24] MEDS: MAGNESIUM OXIDE 400 MG TABLET PO SCH (10:03)
[2017-03-24] MEDS: PREGABALIN 50 MG CAPSULE PO SCH ×2 (10:16→19:55)
[2017-03-24] MEDS: TAMSULOSIN HCL 0.4 MG CAP.ER.24H PO SCH (16:43)
[2017-03-24] MEDS: WARFARIN SODIUM 5 MG TABLET PO SCH (18:10)
[2017-03-25] MEDS: LEVOTHYROXINE SODIUM 100 MCG TABLET PO SCH (05:57)
[2017-03-25] MEDS: FUROSEMIDE 40 MG TABLET PO SCH ×2 (05:59→11:37)
[2017-03-25 09:51] LABS: ADENOVIRUS F 40/41 Not Detected (Not Detected); ASTROVIRUS Not Detected (Not Detected); C. DIFFICILE (TOXIN A/B) Not Detected (Not Detected); CRYPTOSPORIDIUM Not Detected (Not Detected); CYCLOSPORA CAYETANENSIS Not Detected (Not Detected); ENTAMOEBA HISTOLYTICA Not Detected (Not Detected); GIARDIA LAMBLIA Not Detected (Not Detected); ROTAVIRUS A Not Detected (Not Detected); SAPOVIRUS Not Detected (Not Detected); VIBRIO CHOLERAE Not Detected (Not Detected)
[2017-03-25] MEDS: FISH OIL 1,000 MG CAP PO SCH (10:45)
[2017-03-25] MEDS: METOPROLOL TARTRATE 50 MG TABLET PO SCH ×2 (10:45→20:35)
[2017-03-25] MEDS: DILTIAZEM HCL 180 MG CAP.ER.24H PO SCH (10:46)
[2017-03-25] MEDS: MAGNESIUM OXIDE 400 MG TABLET PO SCH (10:46)
[2017-03-25] MEDS: DULoxetine HCL 30 MG CAPSULE.DR PO SCH (10:47)
[2017-03-25] MEDS: PREGABALIN 50 MG CAPSULE PO SCH ×2 (11:05→20:35)
[2017-03-25] MEDS: TAMSULOSIN HCL 0.4 MG CAP.ER.24H PO SCH (16:37)
[2017-03-25] MEDS: WARFARIN SODIUM 5 MG TABLET PO SCH (17:36)
[2017-03-25] MEDS: POTASSIUM CHLORIDE 20 MEQ TABLET.ER PO SCH (20:35)
[2017-03-25] MEDS: HYDROcodone /APAP 5/325 1 EACH TABLET PO PRN (20:36)
[2017-03-26] MEDS: FUROSEMIDE 40 MG TABLET PO SCH ×2 (06:23→13:16)
[2017-03-26] MEDS: LEVOTHYROXINE SODIUM 100 MCG TABLET PO SCH (06:23)
[2017-03-26] MEDS: DULoxetine HCL 30 MG CAPSULE.DR PO SCH (09:40)
[2017-03-26] MEDS: DILTIAZEM HCL 180 MG CAP.ER.24H PO SCH (09:40)
[2017-03-26] MEDS: POTASSIUM CHLORIDE 20 MEQ TABLET.ER PO SCH ×2 (09:41→20:11)
[2017-03-26] MEDS: MAGNESIUM OXIDE 400 MG TABLET PO SCH (09:41)
[2017-03-26] MEDS: METOPROLOL TARTRATE 50 MG TABLET PO SCH ×2 (09:41→20:09)
[2017-03-26] MEDS: PREGABALIN 50 MG CAPSULE PO SCH ×2 (09:44→20:11)
[2017-03-26] MEDS: FISH OIL 1,000 MG CAP PO SCH ×2 (10:15→11:16)
[2017-03-26] MEDS: HYDROcodone /APAP 5/325 1 EACH TABLET PO PRN ×2 (10:46→20:13)
[2017-03-26] MEDS: WARFARIN SODIUM 5 MG TABLET PO SCH (17:34)
[2017-03-26] MEDS: TAMSULOSIN HCL 0.4 MG CAP.ER.24H PO SCH (17:36)
[2017-03-27] MEDS: FUROSEMIDE 40 MG TABLET PO SCH ×2 (06:37→12:22)
[2017-03-27] MEDS: LEVOTHYROXINE SODIUM 100 MCG TABLET PO SCH (06:37)
[2017-03-27] MEDS: DULoxetine HCL 30 MG CAPSULE.DR PO SCH (09:05)
[2017-03-27] MEDS: DILTIAZEM HCL 180 MG CAP.ER.24H PO SCH (09:05)
[2017-03-27] MEDS: METOPROLOL TARTRATE 50 MG TABLET PO SCH ×2 (09:06→20:08)
[2017-03-27] MEDS: FISH OIL 1,000 MG CAP PO SCH (09:06)
[2017-03-27] MEDS: POTASSIUM CHLORIDE 20 MEQ TABLET.ER PO SCH ×2 (09:06→20:08)
[2017-03-27] MEDS: MAGNESIUM OXIDE 400 MG TABLET PO SCH (09:06)
[2017-03-27] MEDS: PREGABALIN 50 MG CAPSULE PO SCH (09:06)
[2017-03-27] MEDS: traMADol HCL 50 MG TABLET PO PRN (14:53)
[2017-03-27] MEDS: WARFARIN SODIUM 5 MG TABLET PO SCH (18:15)
[2017-03-27] MEDS: TAMSULOSIN HCL 0.4 MG CAP.ER.24H PO SCH (18:15)
--- NOTE | 2017-03-27 19:28 | Diagnostic Imaging Report ---
ROSALIO ASHLEY [facility] [address] [facility].[address] [id number] Report Submission Date: Mar 27, 2017 2:50:58 PM COAL CARRIER Patient Study Name: SHANNAN BRYANT Date: Mar 27, 2017 1:52:10 PM COAL CARRIER Modality Type: CR Gender: M Description: LOWER EXTREMITY : 40 Institution: [facility] Physician: ROSALIO ASHLEY Examination: Plain film left femur History: PAIN POST LEFT FEMUR FRACTURE, S/P REPAIR 2 WEEKS AGO, HISTORY OF LT HIP REPLACEMENT (Hx) / LEFT FEMUR FX (DICOM Hx) / LEFT FEMUR FX (Pt comments) Comparison exams: Plain film dated 26 February 2017 Findings: 4 views of the femur demonstrates a hip replacement hardware in place. Fixation hardware traverse a mid to lower femoral fracture. Overlying skin torri. Extensive vascular calcifications. Impression: Extensive fixation hardware traversing a mid to distal femoral fracture. Overlying skin torri. Hip articulation replacement. Extensive vascular calcifications. Electronically signed on Mar 27, 2017 2:50:58 PM COAL CARRIER by: João STRANGE
[2017-03-28] MEDS: LEVOTHYROXINE SODIUM 100 MCG TABLET PO SCH (06:25)
[2017-03-28] MEDS: FUROSEMIDE 40 MG TABLET PO SCH ×2 (06:25→12:11)
[2017-03-28] MEDS: PREGABALIN 50 MG CAPSULE PO SCH ×2 (07:55→19:58)
[2017-03-28] MEDS: DULoxetine HCL 30 MG CAPSULE.DR PO SCH (07:55)
[2017-03-28] MEDS: DILTIAZEM HCL 180 MG CAP.ER.24H PO SCH (07:55)
[2017-03-28] MEDS: POTASSIUM CHLORIDE 20 MEQ TABLET.ER PO SCH ×2 (07:55→19:58)
[2017-03-28] MEDS: FISH OIL 1,000 MG CAP PO SCH (07:55)
[2017-03-28] MEDS: MAGNESIUM OXIDE 400 MG TABLET PO SCH (07:55)
[2017-03-28] MEDS: METOPROLOL TARTRATE 50 MG TABLET PO SCH ×2 (07:56→19:59)
[2017-03-28] MEDS: HYDROcodone /APAP 5/325 1 EACH TABLET PO PRN ×2 (13:04→19:58)
[2017-03-28] MEDS: WARFARIN SODIUM 5 MG TABLET PO SCH (16:51)
[2017-03-28] MEDS: TAMSULOSIN HCL 0.4 MG CAP.ER.24H PO SCH (16:52)
[2017-03-29] MEDS: HYDROcodone /APAP 5/325 1 EACH TABLET PO PRN ×3 (04:08→19:28)
[2017-03-29] MEDS: LEVOTHYROXINE SODIUM 100 MCG TABLET PO SCH (06:47)
[2017-03-29] MEDS: FUROSEMIDE 40 MG TABLET PO SCH ×2 (06:47→13:33)
[2017-03-29] MEDS: MAGNESIUM OXIDE 400 MG TABLET PO SCH (08:27)
[2017-03-29] MEDS: POTASSIUM CHLORIDE 20 MEQ TABLET.ER PO SCH ×2 (08:27→20:18)
[2017-03-29] MEDS: DILTIAZEM HCL 180 MG CAP.ER.24H PO SCH (08:27)
[2017-03-29] MEDS: FISH OIL 1,000 MG CAP PO SCH (08:27)
[2017-03-29] MEDS: DULoxetine HCL 30 MG CAPSULE.DR PO SCH (08:27)
[2017-03-29] MEDS: PREGABALIN 50 MG CAPSULE PO SCH ×2 (08:28→20:18)
[2017-03-29] MEDS: METOPROLOL TARTRATE 50 MG TABLET PO SCH ×2 (08:28→20:18)
[2017-03-29] MEDS: WARFARIN SODIUM 5 MG TABLET PO SCH (16:58)
[2017-03-29] MEDS: TAMSULOSIN HCL 0.4 MG CAP.ER.24H PO SCH (17:00)
[2017-03-30] MEDS: HYDROcodone /APAP 5/325 1 EACH TABLET PO PRN ×2 (03:52→20:11)
[2017-03-30] MEDS: LEVOTHYROXINE SODIUM 100 MCG TABLET PO SCH (05:50)
[2017-03-30] MEDS: FUROSEMIDE 40 MG TABLET PO SCH ×2 (05:50→11:43)
[2017-03-30] MEDS: DULoxetine HCL 30 MG CAPSULE.DR PO SCH (09:02)
[2017-03-30] MEDS: DILTIAZEM HCL 180 MG CAP.ER.24H PO SCH (09:02)
[2017-03-30] MEDS: MAGNESIUM OXIDE 400 MG TABLET PO SCH (09:03)
[2017-03-30] MEDS: METOPROLOL TARTRATE 50 MG TABLET PO SCH ×2 (09:03→20:11)
[2017-03-30] MEDS: FISH OIL 1,000 MG CAP PO SCH (09:03)
[2017-03-30] MEDS: POTASSIUM CHLORIDE 20 MEQ TABLET.ER PO SCH ×2 (09:03→20:11)
[2017-03-30] MEDS: PREGABALIN 50 MG CAPSULE PO SCH ×2 (09:07→20:12)
[2017-03-30] MEDS: TAMSULOSIN HCL 0.4 MG CAP.ER.24H PO SCH (16:32)
[2017-03-30] MEDS: WARFARIN SODIUM 5 MG TABLET PO SCH (18:11)
[2017-03-31] MEDS: LEVOTHYROXINE SODIUM 100 MCG TABLET PO SCH (06:20)
[2017-03-31] MEDS: FUROSEMIDE 40 MG TABLET PO SCH ×2 (06:20→11:44)
[2017-03-31] MEDS: METOPROLOL TARTRATE 50 MG TABLET PO SCH ×2 (08:31→19:57)
[2017-03-31] MEDS: DULoxetine HCL 30 MG CAPSULE.DR PO SCH (08:31)
[2017-03-31] MEDS: FISH OIL 1,000 MG CAP PO SCH (08:31)
[2017-03-31] MEDS: POTASSIUM CHLORIDE 20 MEQ TABLET.ER PO SCH ×2 (08:31→19:56)
[2017-03-31] MEDS: MAGNESIUM OXIDE 400 MG TABLET PO SCH (08:31)
[2017-03-31] MEDS: DILTIAZEM HCL 180 MG CAP.ER.24H PO SCH (08:31)
[2017-03-31] MEDS: PREGABALIN 50 MG CAPSULE PO SCH ×2 (08:35→19:57)
[2017-03-31] MEDS: HYDROcodone /APAP 5/325 1 EACH TABLET PO PRN (15:48)
[2017-03-31] MEDS: TAMSULOSIN HCL 0.4 MG CAP.ER.24H PO SCH (16:31)
[2017-03-31] MEDS: WARFARIN SODIUM 5 MG TABLET PO SCH (17:45)
[2017-03-31] MEDS: traMADol HCL 50 MG TABLET PO PRN (19:56)
[2017-03-31] MEDS: MELATONIN 3 MG TABLET PO SCH (22:05)
[2017-04-01] MEDS: traMADol HCL 50 MG TABLET PO PRN (03:26)
[2017-04-01] MEDS: LEVOTHYROXINE SODIUM 100 MCG TABLET PO SCH (05:39)
[2017-04-01] MEDS: FUROSEMIDE 40 MG TABLET PO SCH ×2 (05:39→11:38)
[2017-04-01] MEDS: MAGNESIUM OXIDE 400 MG TABLET PO SCH (09:18)
[2017-04-01] MEDS: DILTIAZEM HCL 180 MG CAP.ER.24H PO SCH (09:18)
[2017-04-01] MEDS: METOPROLOL TARTRATE 50 MG TABLET PO SCH ×2 (09:18→19:31)
[2017-04-01] MEDS: DULoxetine HCL 30 MG CAPSULE.DR PO SCH (09:18)
[2017-04-01] MEDS: POTASSIUM CHLORIDE 20 MEQ TABLET.ER PO SCH ×2 (09:18→19:32)
[2017-04-01] MEDS: PREGABALIN 50 MG CAPSULE PO SCH ×2 (09:27→19:30)
[2017-04-01] MEDS: FISH OIL 1,000 MG CAP PO SCH (09:27)
[2017-04-01] MEDS: HYDROcodone /APAP 5/325 1 EACH TABLET PO PRN ×2 (15:09→19:31)
[2017-04-01] MEDS: TAMSULOSIN HCL 0.4 MG CAP.ER.24H PO SCH (16:43)
[2017-04-01] MEDS: WARFARIN SODIUM 5 MG TABLET PO SCH (17:38)
[2017-04-01] MEDS: MELATONIN 3 MG TABLET PO SCH (19:30)
[2017-04-02] MEDS: LEVOTHYROXINE SODIUM 100 MCG TABLET PO SCH (06:10)
[2017-04-02] MEDS: FUROSEMIDE 40 MG TABLET PO SCH (06:10)
[2017-04-02] MEDS: PREGABALIN 50 MG CAPSULE PO SCH (09:02)
[2017-04-02] MEDS: FISH OIL 1,000 MG CAP PO SCH (09:02)
[2017-04-02] MEDS: DULoxetine HCL 30 MG CAPSULE.DR PO SCH (09:02)
[2017-04-02] MEDS: POTASSIUM CHLORIDE 20 MEQ TABLET.ER PO SCH (09:02)
[2017-04-02] MEDS: METOPROLOL TARTRATE 50 MG TABLET PO SCH (09:02)
[2017-04-02] MEDS: DILTIAZEM HCL 180 MG CAP.ER.24H PO SCH (09:02)
[2017-04-02] MEDS: MAGNESIUM OXIDE 400 MG TABLET PO SCH (09:03)
[2017-04-02] MEDS: HYDROcodone /APAP 5/325 1 EACH TABLET PO PRN (09:06)
[2017-04-02 09:37] VITALS: BP 112/68
--- NOTE | 2017-04-06 08:25 | Inpatient Progress Note ---
Subjective - Required Recertification Statement I anticipate X number of days because-include discharge plan: 4 days - Review of Systems Events since last encounter: Patient has been doing well. Patient states that he is anxious to return back home at this time. Patient does feel like is making significant progress with his ability to transfer and ambulate. Patient stated his pain seemed to be well- controlled at this time. Patient diabetes mellitus has been doing well. Patient congestive heart failure has been stable without any acute exacerbation. Patient denies any chest pain chest pressure TIA or CVA symptoms. Objective - Exam Vitals and I&O: Vital Signs Temp 98.6 F 04/02/17 09:00 Pulse 79 04/02/17 09:00 Resp 20 04/02/17 09:00 BP 112/68 04/02/17 09:00 Pulse Ox 95 04/02/17 09:00 General: Alert, Oriented to Person, Oriented to Place, Oriented to Time, Cooperative, No acute distress Neck: Supple, No JVD Lungs: Clear to auscultation, Normal air movement, Speaks full Sentences. No: Wheezes, Rales, Rhonchi Cardiovascular: Normal S1, Normal S2, Irregularly Irregular Abdomen: Normal bowel sounds, Soft, No tenderness Extremities: No clubbing, Other (mild edema) Skin: Normal, [place], Warm, Other (periferal pulses good) Neurological: Normal speech, Strength Equal Bilat - Results Results: Laboratory Results WBC 5.70 K/ul (4.00-12.00) 03/21/17 06:40 RBC 3.38 M/ul (3.90-5.20) L 03/21/17 06:40 Hgb 9.9 g/dL (12.0-18.0) L 03/21/17 06:40 Hct 31.5 % (37.0-53.0) L 03/21/17 06:40 MCV 93.3 fl (80.0-100.0) 03/21/17 06:40 MCH 29.4 pg (28.0-34.0) 03/21/17 06:40 MCHC 31.5 g/dL (30.0-36.0) 03/21/17 06:40 RDW 14.3 % (11.3-14.3) 03/21/17 06:40 Plt Count 311 K/mm3 (130-400) 03/21/17 06:40 Seg Neutrophils % 83 % (39-79) H 03/21/17 06:40 Band Neutrophils % 1 % (0-12) 03/21/17 06:40 Lymphocytes % 8 % (16-50) L 03/21/17 06:40 Monocytes % 3 % (0-11) 03/21/17 06:40 Eosinophils % 5 % (0-7) 03/21/17 06:40 Plt Morphology Comment Normal (NORMAL) 03/21/17 06:40 Polychromasia 1+ (NEGATIVE) H 03/21/17 06:40 Hypochromasia 1+ (NEGATIVE) H 03/21/17 06:40 RBC Morph Comment Abnormal (NORMAL) H 03/21/17 06:40 PT 21.1 Seconds (9.4-11.6) H 03/27/17 07:40 INR 2.00 (0.9-1.2) H 03/27/17 07:40 Sodium 138 mmol/L (136-145) 03/21/17 06:40 Potassium 4.0 mmol/L (3.5-5.1) 03/21/17 06:40 Chloride 97 mmol/L (98-107) L 03/21/17 06:40 Carbon Dioxide 29 mmol/L (22-30) 03/21/17 06:40 BUN 14 mg/dL (9-20) 03/21/17 06:40 Creatinine 0.80 mg/dL (0.66-1.25) 03/21/17 06:40 Estimated Creat Clear 110 03/21/17 06:40 Est GFR ( Amer) > 60 (60-) 03/21/17 06:40 Est GFR (Non-Af Amer) > 60 (60-) 03/21/17 06:40 Glucose 141 mg/dL (74-106) H 03/21/17 06:40 Calcium 8.5 mg/dL (8.4-10.2) 03/21/17 06:40 Total Bilirubin 1.2 mg/dL (0.2-1.3) 03/21/17 06:40 AST 25 U/L (15-46) 03/21/17 06:40 ALT 32 U/L (13-69) 03/21/17 06:40 Alkaline Phosphatase 87 U/L (38-126) 03/21/17 06:40 Total Protein 5.8 g/dL (6.3-8.2) L 03/21/17 06:40 Albumin 2.9 g/dL (3.5-5.0) L 03/21/17 06:40 Stl C. cayetanensis PCR Not detected (Not Detected) 03/24/17 11:50 Stool Rotavirus (PCR) Not detected (Not Detected) 03/24/17 11:50 Stool Astrovirus (PCR) Not detected (Not Detected) 03/24/17 11:50 Stool Campylobacter PCR Not detected (Not Detected) 03/24/17 11:50 Stool Cryptosporidium PCR Not detected (Not Detected) 03/24/17 11:50 Stl E.coli Shiga Toxins Not detected (Not Detected) 03/24/17 11:50 Stool E.coli 0157 Cult Not detected (Not Detected) 03/24/17 11:50 Stl Aggregat E Coli PCR Not detected (Not Detected) 03/24/17 11:50 Stl E. histolytica PCR Not detected (Not Detected) 03/24/17 11:50 Stool Giardia Lamblia PCR Not detected (Not Detected) 03/24/17 11:50 Stool Sapovirus (PCR) Not detected (Not Detected) 03/24/17 11:50 Stl P. shigelloides PCR Not detected (Not Detected) 03/24/17 11:50 St Y.enterocolitica PCR Not detected (Not Detected) 03/24/17 11:50 Stool Vibrio (PCR) Not detected (Not Detected) 03/24/17 11:50 Stl Vibrio cholerae PCR Not detected (Not Detected) 03/24/17 11:50 Stl Norovirus GI/GII PCR Not detected (Not Detected) 03/24/17 11:50 Adenovirus (PCR) Not detected (Not Detected) 03/24/17 11:50 C. diff Tox Assay (Ref) Not detected (Not Detected) 03/24/17 11:50 E. coli (PCR) Not detected (Not Detected) 03/24/17 11:50 Escherichia coli 0157 Not detected (Not Detected) 03/24/17 11:50 Salmonella (PCR) Not detected (Not Detected) 03/24/17 11:50 Assessment/Plan - Assessment/Plan (1) Gait disturbance Status: Acute Assessment: improving (2) Left femoral shaft fracture Status: Acute Assessment: stable (3) CAD (coronary artery disease) Status: Chronic Qualifiers: Coronary Disease-Associated Artery/Lesion type: [place] artery [place] vs. transplanted heart: [place] heart Associated angina: without angina Qualified Code(s): I25.10 - Atherosclerotic heart disease of [place] coronary artery without angina pectoris Comment: stable, will continuw with home meds Assessment: stable (4) CHF (congestive heart failure), NYHA class III Status: Chronic Qualifiers: Congestive heart failure type: systolic Congestive heart failure chronicity : chronic Qualified Code(s): I50.22 - Chronic systolic (congestive) heart failure Assessment: stable (5) Diabetes type 2, controlled Status: Chronic Qualifiers: Diabetes mellitus complication status: with neurologic complications Diabetes mellitus complication detail: with polyneuropathy Diabetes mellitus intermediate insulin use: without label drier use Qualified Code(s): E11.42 - Type 2 diabetes mellitus with diabetic polyneuropathy Assessment: stable
--- NOTE | 2017-04-06 08:29 | Discharge Summary ---
Discharge Summary - Discharge Sumary History of Present Illness: Patient is a 76-year-old white male who recently underwent a total hip arthroscopy. While at home patient lost his balance and fell and sustained a femoral shaft fracture. Patient subsequently underwent an open reduction internal fixation of the fracture. Patient was transferred over the this institution for further rehab services. Condition at Discharge: Stable Home Medications: Ambulatory Orders Medication Instructions Recorded Magnesium Oxide [Magnesium] 400 mg PO DAILY 08/16/16 traMADol HCL [Ultram] 50 mg PO Q6H PRN #30 tablet 02/20/17 Bisacodyl [Dulcolax] 2 tab PO DAILY PRN 03/20/17 Diltiazem HCl [Diltiazem 24Hr Cd] 180 mg PO DAILY 03/20/17 Furosemide [Lasix] 40 mg PO 0700,1200 03/20/17 Levothyroxine Sodium [Unithroid] 100 mcg PO 0700 03/20/17 Metoprolol Tartrate [Lopressor] 100 mg PO BID 03/20/17 [place]-3 Fatty Acids/Fish Oil [Fish 1 cap PO DAILY 03/20/17 Yanet Boateng 1,000 mg Softgel] Potassium Chloride [Klor-Con M20] 20 meq PO BID 03/20/17 Pregabalin [Lyrica] 75 mg PO BID 03/20/17 Tamsulosin HCl [Flomax] 1 cap PO 1700 03/20/17 Warfarin Sodium [Coumadin] 1 tab PO 1800 03/20/17 oxyCODONE HCL/ACETAMINOPHEN 1 tab PO Q6 PRN 03/20/17 [Percocet 5/325] DULoxetine HCL [Cymbalta] 30 mg PO DAILY #90 capsule. 04/02/17 Melatonin 5 mg PO HS PRN #30 capsule 04/02/17 Consultations this Visit: None Procedures this Visit: None Allergies/Adverse Reactions: Allergies Allergy/AdvReac Type Severity Reaction Status Date / Time No Known Allergies Allergy Verified 02/24/17 10:58 Discharge Summary: Patient did well with physical and occupational therapy. Patient is highly motivated and his ability to transfer and ambulate improved greatly during his stay. Patient chronic medical problems remain stable. Coronary artery disease was without any chest pain or chest pressure. He did not have any exacerbation of his congestive heart failure. Patient diabetes mellitus remains stable on insulin therapy. Patient was on anticoagulation therapy for chronic atrial.. Patient heart rate remain stable. - Final Diagnosis (1) Gait disturbance Problems: Improved. (2) Left femoral shaft fracture Problems: Stable. Incision sites appear to be healing well at this time. (3) CAD (coronary artery disease) Problems: Stable and home medications. (4) CHF (congestive heart failure), NYHA class III Problems: Remains stable and home medications. (5) Diabetes type 2, controlled Problems: Stable home medications.
== END 2017-04-02 09:44 | disposition home health service (06) | DRG 534 ==
LOC: SOUTH 14:25
PROVIDERS: ADMIT Family Medicine; ATTEND Family Medicine
DX: S72.8X2A Other fracture of left femur, initial encounter for closed fracture (principal); I48.91 Unspecified atrial fibrillation; E11.9 Type 2 diabetes mellitus without complications; I10 Essential (primary) hypertension; E78.5 Hyperlipidemia, unspecified; E03.9 Hypothyroidism, unspecified; I50.9 Heart failure, unspecified; I25.10 Atherosclerotic heart disease of native coronary artery without angina pectoris; I73.9 Peripheral vascular disease, unspecified; G62.9 Polyneuropathy, unspecified
CPT/HCPCS: 36415; 73552; 80053; 85025; 85610; 87507; 97110; 97112; 97116; 97530; 97535; A9270

== ENCOUNTER 2017-06-02 07:43 | Outpatient (CLI) | payer MEDICARE, OTHER ==
[2017-06-02 08:38] LABS: eGFR (African) > 60; eGFR (Non-African) > 60
== END 2017-06-02 07:44 ==
LOC: LAB 07:43
PROVIDERS: ATTEND Internal Medicine Cardiovascular Disease
DX: I50.32 Chronic diastolic (congestive) heart failure (principal)
CPT/HCPCS: 36415; 80048

== ENCOUNTER 2018-04-12 11:27 | Outpatient (CLI) | payer MEDICARE, OTHER | END 2018-04-12 11:30 | LOC: LAB 11:27 | PROVIDERS: ATTEND Internal Medicine Clinical Cardiac Electrophysiology | DX: I48.91 Unspecified atrial fibrillation (principal) | CPT/HCPCS: 36415; 85610 ==

== ENCOUNTER 2018-04-30 19:33 | Emergency (ER) | payer MEDICARE, OTHER ==
--- NOTE | 2018-04-30 20:03 | ED Physician Documentation ---
Syncope/Near Syncope - HISTORIAN Historian: patient, spouse - HPI Stated Complaint: SYNCOPE Chief Complaint: Near Syncope Additional Information: Patient is a 77-year-old female that presents to the ER with . states that they were at [employer]- patient had been sitting there and was doing fine- he went to stand up and became very unsteady- was confused/dazed (near-syncopal). states that it took 3 people to get patient up and into the car. is concerned because he was having the "exact same symptoms" prior to getting his pacemaker placed on 2018. Patient is alert and oriented upon arrival- some confusion- took a moment to answer questions but coming around. He has been eating and drinking well. Witnessed By: family Position at Time of Episode: sitting Activity at Time of Episode: At [facility] Symptoms Prior to Episode: light-headed Character of Events(s): almost passed out Symptoms after Event: confused after event. denies: incontinent of urine, incontinent of stool, breathing stopped, lost pulse Location of Injury: none Associated Symptoms: feels back to normal, weakness Further Comments: no - ROS CONST: recent illness (had pacemaker placed couple of weeks ago) EYES/ENT: none GI/: diarrhea MS/SKIN/LYMPH: ankle swelling NEURO/PSYCH: confusion (after near syncopal episode) - PAST HX Cardiac Disease: CHF (chronic diastolic), CAD, A-Fib PE Risk Factors: hypertension Other History: diabetes Type 2 (diet controlled), hypertension, Other (orthostatic hypotension, PVD, Peripheral Neuropathy, Prostate CA Hypothyroidism, HLD) Surgeries/Procedures: cardiac bypass, pacemaker (), other (cataract removal, Hernia repair, TURP, angioplasty) Immunizations: tetanus, influenza, pneumovax Allergies/Adverse Reactions: Allergies Allergy/AdvReac Type Severity Reaction Status Date / Time No Known Allergies Allergy Verified 02/24/17 10:58 Home Medications: Ambulatory Orders Medication Instructions Recorded Atorvastatin Calcium 40 mg DAILY 04/30/18 Diltiazem HCl [Cardizem] 25 mg BID 04/30/18 Lisinopril 40 mg DAILY 04/30/18 Metformin HCl [Glucophage] 500 mg BID 04/30/18 - SOCIAL HX Smoking History: non-smoker Alcohol Use: none Drug Use: none - FAMILY HX Family History: none - VITAL SIGNS Vital Signs: Vital Signs Temp Pulse Resp BP Pulse Ox 97.6 F 80 16 110/58 96 04/30/18 19:43 04/30/18 21:02 04/30/18 19:43 04/30/18 19:43 04/30/18 21:02 Progress - Progress Progress: 20:50 Discussed with keeping patient here and monitoring- she is requesting patient to be sent to [place] since 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 Patient is resting comfortably- he is alert and oriented- skin is P/W/D VS: 80 HR paced, BP118/61, resp. 18, 99% 2L 21:06 Dr. Roach accepted transfer to [facility] 21:50 Waiting for housekeeping room attendant to call back with bed assignment 22:14 Updated patient and family on [place] wait - EKG/XRAY/CT EKG: NSR (Paced) ED Results Lab/Radiology - Lab Results Lab Results: Lab Results 04/30/18 04/30/18 04/30/18 19:50 19:50 19:50 WBC 11.00 K/ul K/ul (4.00-12.00) RBC 4.96 M/ul M/ul (3.90-5.20) Hgb 15.7 g/dL g/dL (12.0-18.0) Hct 46.1 % % (37.0-53.0) MCV 93.0 fl fl (80.0-100.0) MCH 31.7 pg pg (28.0-34.0) MCHC 34.1 g/dL g/dL (30.0-36.0) RDW 13.1 % % (11.3-14.3) Plt Count 172 K/mm3 K/mm3 (130-400) Neut % (Auto) 70.9 % % (39.0-79.0) Lymph % (Auto) 16.6 % % (16.0-50.0) [place] % (Auto) 7.5 % % (0.0-11.0) Eos % (Auto) 4.0 % % (0.0-6.8) Baso % (Auto) 1.0 (0.0-1.5) Neut # (Auto) 7.8 # k/uL H # k/uL (1.4-7.7) Lymph # (Auto) 1.8 # k/uL # k/uL (0.6-4.0) [place] # (Auto) 0.8 # k/uL # k/uL (0.0-0.9) Eos # (Auto) 0.4 # k/uL # k/uL (0.0-0.6) Baso # (Auto) 0.1 # k/uL # k/uL (0.0-0.5) PT INR Sodium 139 mmol/L mmol/L (136-145) Potassium 3.9 mmol/L mmol/L (3.5-5.1) Chloride 96 mmol/L L mmol/L (98-107) Carbon Dioxide 31 mmol/L H mmol/L (22-30) BUN 13 mg/dL mg/dL (9-20) Creatinine 0.92 mg/dL mg/dL (0.66-1.25) Estimated Creat Clear 107 Est GFR ( Amer) > 60 (60 - ) Est GFR (Non-Af Amer) > 60 (60 - ) Glucose 168 mg/dL H mg/dL (74-106) Calcium 8.7 mg/dL mg/dL (8.4-10.2) Total Bilirubin 0.7 mg/dL mg/dL (0.2-1.3) AST 32 U/L U/L (15-46) ALT 12 U/L L U/L (13-69) Alkaline Phosphatase 83 U/L U/L (38-126) Creatine Kinase 47 U/L L U/L (55-170) CK-MB (CK-2) 2.0 ng/mL ng/mL (0.0-5.6) Troponin I < 0.03 ng/mL L ng/mL (0.03-0.06) Total Protein 6.8 g/dL g/dL (6.3-8.2) Albumin 4.8 g/dL g/dL (3.5-5.0) 04/30/18 19:40 WBC RBC Hgb Hct MCV MCH MCHC RDW Plt Count Neut % (Auto) Lymph % (Auto) [place] % (Auto) Eos % (Auto) Baso % (Auto) Neut # (Auto) Lymph # (Auto) [place] # (Auto) Eos # (Auto) Baso # (Auto) PT 23.8 Seconds H Seconds (8.8-11.9) INR 2.31 H (0.80-1.10) Sodium Potassium Chloride Carbon Dioxide BUN Creatinine Estimated Creat Clear Est GFR ( Amer) Est GFR (Non-Af Amer) Glucose Calcium Total Bilirubin AST ALT Alkaline Phosphatase Creatine Kinase CK-MB (CK-2) Troponin I Total Protein Albumin - Radiology Radiology Impressions: Portable chest History: Syncope and pacemaker Findings: A triple lead transvenous pacemaker, coronary artery bypass grafting, low lung volumes, obesity, cardiomegaly, pulmonary vascular congestion, and probably mild pulmonary edema are observed. There is no significant pleural effusion. Impression: Postoperative changes and mild congestive heart failure. Electronically signed on Apr 30, 2018 8:38:01 PM CDT by: Mike Hoffman Computed tomography head without contrast History: Near syncope Findings: Transverse brain sections are obtained without contrast. There are no comparisons. Mild cerebral atrophy and intracranial atherosclerosis are observed. Lens replacements have been performed. Minimal periventricular white matter hypoattenuation is present. There is no intracranial hemorrhage, mass effect, fluid collection, or skull lesion. Impression: Brain atrophy and chronic small vessel ischemic gliosis in periventricular white matter without acute abnormality. Electronically signed on Apr 30, 2018 8:37:03 PM CDT by: Mike Hoffman - Orders Orders: ED Orders Category Date Time Status Continuous EKG monitoring Q30M Care 04/30/18 19:38 Active Continuous Pulse Oximetry Q30M Care 04/30/18 19:[address] IV Lock 1T Care 04/30/18 19:38 Active CHEST 1VIEW [RAD] Stat Exams 04/30/[address] BRAIN W/O CONTRAST Stat Exams 04/30/18 Taken CBC/PLATELET/DIFF Routine Lab 04/30/18 19:50 Completed CKMB Stat Lab 04/30/18 19:50 Completed CMP Routine Lab 04/30/18 19:50 Completed CREATINE KINASE Routine Lab 04/30/18 19:50 Completed PT-INR Routine Lab 04/30/18 19:40 Completed TROPONIN I (cTnI) Stat Lab 04/30/18 19:50 Completed Oxygen Daily Oxygen 04/30/18 19:45 Ordered EKG WITH COMPARISON Stat Ther 04/30/18 19:38 Ordered Syncope Physical Exam - Physical Exam General Appearance: alert, mild distress EENT: nml eye inspection, PERRL, nml ENT inspection, pharynx nml Neck/Back: non-tender, no carotid bruit Respiratory: no resp distress, chest non-tender, breath sounds normal CVS: reg rate & rhythm, heart sounds normal, equal pulses, other (PACEMAKER) Abdomen: non-tender, nml bowel sounds, no distention Skin: warm/dry, pallor Extremities: non-tender, normal range of motion, no evidence of injury - Neuro/Psych Higher Functions: alert, oriented x3 (Slow responses), no evidence of acute CVA Cranial Nerves: nml as tested Sensorimotor: nml motor response, nml sensory response Discharge Clincal Impression: Near syncope, Pacemaker, CHF (congestive heart failure), NYHA class III Referrals: Jackson Wagner MD [Primary Care Provider] - 2 Days Comments: Patient and family requested transfer to [place] Condition: Good Disposition: 02 XFER [id number]-TRM HOSP Decision to Admit: NO Decision Time: 22:26
[2018-04-30 20:05] LABS: MEAN CORPUSCULAR HEMOGLOBIN 31.7 pg (28.0-34.0); MONOCYTES % 7.5 % (0.0-11.0); NEUTROPHILS # 7.8 # k/uL (1.4-7.7)
[2018-04-30 20:16] LABS: eGFR (Non-African) > 60
[2018-04-30 22:28] VITALS: BP 118/61
--- NOTE | 2018-05-01 04:56 | Diagnostic Imaging Report ---
MICHAEL SHULTZ ED [facility] [address] [facility].[address] [id number] Report Submission Date: Apr 30, 2018 8:38:01 PM CDT Patient Study Name: SHANNAN BRYANT Date: Apr 30, 2018 8:23:49 PM CDT Modality Type: DX Gender: M Description: CHEST 1VIEW : 40 Institution: [facility] Physician: MICHAEL SHULTZ ED Portable chest History: Syncope and pacemaker Findings: A triple lead transvenous pacemaker, coronary artery bypass grafting, low lung volumes, obesity, cardiomegaly, pulmonary vascular congestion, and probably mild pulmonary edema are observed. There is no significant pleural effusion. Impression: Postoperative changes and mild congestive heart failure. Electronically signed on Apr 30, 2018 8:38:01 PM CDT by: Mike STRANGE
--- NOTE | 2018-05-01 04:57 | Diagnostic Imaging Report ---
MICHAEL SHULTZ ED [facility] [address] [facility] [address] [place] [address]. [id number] Report Submission Date: Apr 30, 2018 8:37:03 PM CDT Patient Study Name: SHANNAN BRYANT Date: Apr 30, 2018 8:16:46 PM CDT Modality Type: CT\SR Gender: M Description: CT BRAIN W/O CONTRAST : 40 Institution: [facility] Physician: MICHAEL SHULTZ ED Computed tomography head without contrast History: Near syncope Findings: Transverse brain sections are obtained without contrast. There are no comparisons. Mild cerebral atrophy and intracranial atherosclerosis are observed. Lens replacements have been performed. Minimal periventricular white matter hypoattenuation is present. There is no intracranial hemorrhage, mass effect, fluid collection, or skull lesion. Impression: Brain atrophy and chronic small vessel ischemic gliosis in periventricular white matter without acute abnormality. Electronically signed on Apr 30, 2018 8:37:03 PM CDT by: Mike STRANGE
== END 2018-04-30 22:44 | disposition short-term general hospital (02) ==
LOC: ED 19:33
DX: R55 Syncope and collapse (principal); I50.9 Heart failure, unspecified; Z95.0 Presence of cardiac pacemaker
CPT/HCPCS: 36415; 70450; 71045; 80053; 82550; 82553; 84484; 85025; 85610; 99285; S1016

== ENCOUNTER 2018-10-04 12:59 | Outpatient (CLI) | payer MEDICARE, OTHER | END 2018-10-04 13:03 | LOC: LAB 12:59 | PROVIDERS: ATTEND Internal Medicine Interventional Cardiology | DX: I48.2 Chronic atrial fibrillation (principal) | CPT/HCPCS: 36415; 85610 ==

== ENCOUNTER 2018-11-22 10:53 | Outpatient (CLI) | payer MEDICARE, OTHER ==
[2018-12-02 08:52] LABS: eGFR (Non-African) > 60
== END 2018-11-22 11:05 ==
LOC: LAB 10:53
PROVIDERS: ATTEND Nurse Practitioner Family
DX: I48.92 Unspecified atrial flutter (principal); I50.32 Chronic diastolic (congestive) heart failure
CPT/HCPCS: 36415; 80048; 85610

== ENCOUNTER 2018-12-13 15:42 | Outpatient (CLI) | payer MEDICARE, OTHER ==
--- NOTE | 2018-12-13 21:00 | Diagnostic Imaging Report ---
PATIENT MR#: [id number] PATIENT PATIENT NAME: SHANNAN BRYANT DATE OF : 1940 REFERRING PHYSICIAN: Kelsie Dubose EXAM DATE: 12/13/2018 ACCESSION NUMBER: [id number] EXAM DESCRIPTION: LT HIP 2VIEW COMPLETE Indication: Status post fall today with history of two complete hip replacements, the most recent 1 y ear ago. Technique: 6 views of the left hip and femur were obtained. Comparison: March 27, 2017. Findings: The patient is status post total left hip arthroplasty. Additionally, there is lateral plat e and screw fixation seen over the left femoral shaft. There are cerclage wires seen at the proximal left femoral shaft. There is no hardware complication or acute fracture evident. There is callus formation seen about the left femora l shaft fracture. Dense vascular calcifications are seen with vascular stents at the distal thigh. Small surgical clips are seen in the medial aspect of the thigh soft tissues. Impression: Status post total left hip arthroplasty with lateral plate fixation across the femoral shaft. No hardware complication or acute fracture evident. Read by: Dr. Maurice Roa Transcribed by: Maurice Roa Transcribed Date: 12/13/2018 8:59:58 PM Electronically signed by: Dr. Maurice Roa Date signed: 12/13/2018 8:59:58 PM
== END 2018-12-13 15:52 ==
LOC: RAD 15:42 → ED 15:42 → RAD 15:52 → EDSTATUS 15:54
PROVIDERS: ATTEND Nurse Practitioner Family
DX: I48.91 Unspecified atrial fibrillation (principal); E11.9 Type 2 diabetes mellitus without complications; Z96.642 Presence of left artificial hip joint